=== PATIENT | male | born 1930 | race Hispanic/Latino ===

== ENCOUNTER 2018-07-22 23:34 | Inpatient (IN) | payer MEDICARE ==
[2018-07-22] MEDS: Albuterol-Ipratrop 3 mg / 0.5 (3 ml) UD IH SCH (23:55)
--- NOTE | 2018-07-23 00:05 | ED PDOC ---
Arrival/HPI - General Historian: Patient - History of Present Illness Narrative History of Present Illness (Text): 07/22/18 23:45 87 y/o male, pmh including copd/chf/pneumonia/pulmonary htn/Severe TR wit mild to moderate MR/a.fibb, nkda, c/o cough/shortness of breath on exertion started about 12 hours ago, hypoxic room air @ 89 percent when off oxygen. Pt. has been coughing on and off for the entire day, coughing with wheezing, history of a.fibb but not on any anticoagulant, coughing with shortness of breath, exacerbated by walking, on night sweat, no dizziness, no change in vision, no other medical or psychological complaints. PCP: Dr. Roberts Neurology Manager: Dr. Banda Past Medical History - Provider Review Nursing Documentation Reviewed: Yes - Infectious Disease Hx of Infectious Diseases: None - Tetanus Immunization Tetanus Immunization: Unknown - Cardiac Hx Cardiac Arrhythmia: Yes (afib) Hx Congestive Heart Failure: Yes Hx Peripheral Edema: Yes (bilateral lower extremity discoloration) - Pulmonary Hx Chronic Obstructive Pulmonary Disease (COPD): Yes Hx Pneumonia: Yes (Thoracentesis 07/2014) - HEENT Hx Cataracts: Yes (rt.eye with surgery) Hx Deafness: Yes (right ear) Hx Glaucoma: Yes (left eye) Other/Comment: [place] - Endocrine/Metabolic Hx Hypothyroidism: Yes - Integumentary Hx Dermatological Disorder: No - Musculoskeletal/Rheumatological Hx Falls: No - Gastrointestinal Hx Gastrointestinal Disorders: Yes (occasional constipation) - Genitourinary/Gynecological Hx Prostate Problems: Yes Other/Comment: BPH - Psychiatric Hx Substance Use: No - Past Surgical History Past Surgical History: No Previous - Surgical History Hx Inguinal Hernia Repair: Yes Other/Comment: inguinal hernia sx 30 yrs ago. Cataracts Repair Sx. Glaucoma S/P - Anesthesia Hx Anesthesia: Yes Hx Anesthesia Reactions: No Hx Malignant Hyperthermia: No - Suicidal Assessment Feels Threatened In Home Enviroment: No Family/Social History - Physician Review Nursing Documentation Reviewed: Yes Family/Social History: Unknown Family HX Smoking Status: Former Smoker Hx Alcohol Use: No Hx Substance Use: No Hx Substance Use Treatment: No Allergies/Home Meds Allergies/Adverse Reactions: Allergies No Known Allergies Allergy (Verified 12/10/12 11:28) Home Medications: Home Meds Medication Instructions Recorded Confirmed Budesonide/Formoterol Fumarate 1 aer IH PRN PRN 08/01/13 07/23/18 [Symbicort] Levothyroxine Sodium [Levothroid] 0.05 mg PO DAILY 08/01/13 07/23/18 Review of Systems - Review of Systems Constitutional: absent: Fatigue, Fevers Eyes: absent: Vision Changes ENT: absent: Hearing Changes Respiratory: SOB, Cough, Sputum, Wheezing Cardiovascular: absent: Chest Pain Gastrointestinal: absent: Abdominal Pain, Diarrhea, Nausea, Vomiting Skin: absent: Rash, Pruritis Neurological: absent: Headache, Dizziness Psychiatric: absent: Anxiety, Depression, Suicidal Ideation Physical Exam Vital Signs Reviewed: Yes Temperature: Afebrile Blood Pressure: Normal Pulse: Tachycardic Respiratory Rate: Normal Appearance: Positive for: Well-Appearing, Non-Toxic, Comfortable Pain Distress: None Mental Status: Positive for: Alert and Oriented X 3 - Systems Exam Head: Present: Atraumatic, Normocephalic Pupils: Present: PERRL Extroacular Muscles: Present: EOMI Conjunctiva: Present: Normal Mouth: Present: Moist Mucous Membranes Neck: Present: Normal Range of Motion Respiratory/Chest: Present: Decreased Breath Sounds, Rhonchi. No: Respiratory Distress, Accessory Muscle Use, Wheezes, Rales, Retracting, Tachypneic, Tender to Palpation Cardiovascular: Present: Regular Rate and Rhythm, Normal S1, S2. 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 No: Occult Blood, Rectal Tenderness, Gross Blood, Melena, Fissures, Nodule/Mass/Lesions Back: Present: Normal Inspection Upper Extremity: Present: Normal Inspection. No: Cyanosis, Edema Lower Extremity: Present: Normal Inspection. No: Edema Neurological: Present: GCS=15, CN II-XII Intact, Speech Normal Skin: Present: Warm, Dry, Normal Color. No: Rashes Psychiatric: Present: Alert, Oriented x 3, Normal Insight, Normal Concentration Medical Decision Making ED Course and Treatment: 07/23/18 00:15 -labs -ekg -cxr -school lunch monitor -IV solumedrol/duoneb/aspirin -observe and reassess 07/23/18 02:18 -EKG: A.fibb @ 100 BPM, non specific ST or T wave changes, compared with previous ekg -Chest xray The cardiac silhouette is enlarged. There is evidence for pulmonary venous congestion compatible with CHF. Note is made of confluent RML and LLL opacities compatible with pneumonia. -Labs are non-significant -Mg with normal limit -Trop is negative on this set. -BNP 4350, Lasix 40IVP ordered. -Lactic acid 1.3 -Dimer mildly elevated, 366, CTA ordered. -CTA There is evidence for pulmonary venous congestion compatible with CHF. Small right pleural effusion noted. Note is made of confluent RML, RLL and LLL opacities compatible with multifocal pneumonia. Mild non-specific bilateral hilar adenopathy possibly reactive. Multiple calcified gallstones are noted. No evidence of PE. -Based on [id number], pt. is score of 3 and he should be antiocoagulated. -Heart score is moderate. -Pt. will need admission for bilateral pneumonia with rt. pleural effusion/CHF -I spoke to the family and the patient about the result, recommend admission which they agreed. -I spoke to the night admitting team, Dr. Riddle and the resident, discussed about the case/labs/radiology results and they will come to evaluate and admit the patient. 07/23/18 02:34 -Repeat EKG: A.fibb @ 97 BPM, non specific ST or T wave changes compared with previous ekgs. Pt. is not anticoagulated, spoke to the night hospitalist and recommend single lovenox and let the patient's furniture finisher apprentice Dr. Banda to follow up as the patient is not anticoagulated. -Guaiac negative -Febrile 100.4F, tylenol ordered. - Critical Care Critical Care Minutes: 45 minutes Critical Care Time: Unstable Narrative Critical Care (Text): 07/23/18 02:47 hypoxic/copd/chf/bilateral pneumonia with pleural effusion, duonebx3, solumedrol 125mg IV, oxygen, IV antibiotics/cultures, admission and telemetry. - RAD Interpretation Radiology Orders: CTA Chest: EXAM: CTA Chest with Intravenous Contrast for Pulmonary Embolism CLINICAL HISTORY: Sob/tachycardia, r/o pe TECHNIQUE: Axial CTA images of the chest with intravenous contrast using a pulmonary embolism protocol. Reconstructed images were created and reviewed. 367.99 mGy-cm CONTRAST: With; VISI 320 100 ml was administered without incident. COMPARISON: DX\SD\LA - CHEST PORTABLE - 07/23/2018 12:15 AM EST FINDINGS: PULMONARY ARTERIES No evidence of central or segmental pulmonary embolism is seen. AORTA There is no evidence for aneurysm or dissection of the thoracic aorta. LUNGS There is evidence for pulmonary venous congestion compatible with CHF. Note is made of confluent RML, RLL and LLL opacities compatible with multifocal pneumonia. PLEURAL SPACES Small right pleural effusion noted. HEART Normal heart size. No significant pericardial effusion. LYMPH NODES Mild non-specific bilateral hilar adenopathy possibly reactive. BONES No focal osseous abnormality or acute fracture. UPPER ABDOMEN Multiple calcified gallstones are noted. IMPRESSION: 1. There is evidence for pulmonary venous congestion compatible with CHF. 2. Small right pleural effusion noted. 3. Note is made of confluent RML, RLL and LLL opacities compatible with multifocal pneumonia. 4. Mild non-specific bilateral hilar adenopathy possibly reactive. 5. Multiple calcified gallstones are noted. 6. No evidence of PE. Electronically signed on Jul 23, 2018 2:03:33 AM EST by: Luther Connors M.D., MBA Certified By ABR & CBCCT Fellowship Trained MRI and CT Specialist - Chest xray: FINDINGS: LUNGS: There is evidence for pulmonary venous congestion compatible with CHF. Note is made of confluent RML and LLL opacities compatible with pneumonia. PLEURAL SPACES: No pleural effusion or pneumothorax. MEDIASTINUM: The cardiac silhouette is enlarged. BONES: No acute osseous abnormality. IMPRESSION: 1. The cardiac silhouette is enlarged. 2. There is evidence for pulmonary venous congestion compatible with CHF. 3. Note is made of confluent RML and LLL opacities compatible with pneumonia. Electronically signed on Jul 23, 2018 1:57:52 AM EST by: Luther Connors M.D., MBA Certified By ABR & CBCCT Fellowship Trained MRI and CT Specialist It Investment/Portfolio Manager: Radiologist - EKG Interpretation EKG Interpretation (Text): 07/23/18 00:15 -EKG: A.fibb @ 100 BPM, non specific ST or T wave changes, compared with previous ekg Interpreted by ED Physician: Yes Type: 12 lead EKG - PA / CNC SET UP OPERATOR / Resident Statement MD/DO has reviewed & agrees with the documentation as recorded. Disposition/Present on Arrival - Present on Arrival Any Indicators Present on Arrival: No History of DVT/PE: No History of Uncontrolled Diabetes: No Urinary Catheter: No History of Decub. Ulcer: No History Surgical Site Infection Following: None - Disposition Have Diagnosis and Disposition been Completed?: Yes Diagnosis: SOB (shortness of breath), Pneumonia, COPD (chronic obstructive pulmonary disease), Congestive heart failure, Pleural effusion, Hypoxic, Atrial fibrillation, Fever Disposition: HOSPITALIZED Disposition Time: 02:16 Patient Plan: Admission, Telemetry Patient Problems: Current Active Problems Problem Status Onset Congestive heart failure Acute Pneumonia Acute SOB (shortness of breath) Acute COPD (chronic obstructive pulmonary disease) Acute Pleural effusion Acute Hypoxic Acute Atrial fibrillation Acute Fever Acute Condition: GUARDED
[2018-07-23] MEDS: Albuterol-Ipratrop 3 mg / 0.5 (3 ml) UD IH SCH ×5 (00:10→21:00)
[2018-07-23 00:25] LABS: BASO # 0.01 K/mm3 (0.0-2.0); BASO % 0.1 % (0.0-3.0); EOS % 0.2 % (1.5-5.0); GRAN # 7.9 (1.4-6.5); GRAN % 73.8 % (50.0-68.0); HEMOGLOBIN 11.2 g/dL (14.0-18.0); LYMPH # 1.5 (1.2-3.4); LYMPH % 13.7 % (22.0-35.0); MEAN CELL VOLUME 89.8 fl (80.0-105.0); MEAN CORPUSCULAR HEMOGLOBIN 29.3 pg (25.0-35.0); MEAN CORPUSCULAR HGB CONC 32.7 g/dl (31.0-37.0); MEAN PLATELET VOLUME 10.1 fl (7.0-11.0); MONO # 1.3 (0.1-0.6); MONO % 12.2 % (1.0-6.0); RBC 3.82 10^6/uL (3.5-6.1); WHITE BLOOD COUNT 10.7 10^3/uL (4.5-11.0)
[2018-07-23 00:29] LABS: VENOUS BLOOD GAS PO2 28 mm/Hg (30-55); VENOUS BLOOD PH 7.32 (7.32-7.43)
[2018-07-23 00:30] LABS: INR 1.21; PARTIAL THROMBOPLASTIN TIME 33.8 Seconds (25.1-36.5); PROTHROMBIN TIME 13.9 SECONDS (9.4-12.5)
[2018-07-23 00:31] LABS: ALB/GLOB RATIO 1.1 (1.1-1.8); ALBUMIN 4.6 g/dL (3.0-4.8); ALT/SGPT 25 U/L (7-56); AST/SGOT 30 U/L (17-59); BLOOD UREA NITROGEN 19 mg/dL (7-21); CALCIUM 9.1 mg/dL (8.4-10.5); GFR NON-AFRICAN AMERICAN > 60
[2018-07-23] MEDS ORDERED: Iodixanol 320 MG/ML 100 ML BOTTLE IV ONE (00:39)
[2018-07-23 00:43] LABS: B-TYPE NATRIURETIC PEPTIDE 4350 pg/mL (0-450); TROPONIN I < 0.01 ng/mL
[2018-07-23] MEDS ORDERED: cefTRIAXone 1 gm 1 GM/100 ML BAG IVPB STA (02:04)
[2018-07-23] MEDS ORDERED: Azithromycin 500MG/NS 250ml 500 MG/250 ML BAG IVPB STA (02:04)
[2018-07-23 02:40] VITALS: BMI 20.9
[2018-07-23] MEDS ORDERED: Enoxaparin 60 mg Syringe SC STA (02:46)
--- NOTE | 2018-07-23 03:01 | CP.PCM.HP ---
<Andrea Mckinney - Last Filed: 07/23/18 05:59> History of Present Illness - History of Present Illness History of Present Illness: Andrea Mckinney, PGY1 Hospital H&P This is an 87 year old male with PMH of CHF with preserved EF in 2013, COPD, hypothyroidism, pneumonia, pulmonary hypertension, severe tricuspid regurgitation and afib not on AC presenting to the hospital for one day history of SOB. Family who is present at bedside provide history and state patient was in his usual state of health but began to have SOB on exertion earlier in the day associated with non productive cough, sneezing, wheezing and one episode of non bloody vomiting. Family states current symptoms are similar to previous episodes of pneumonia. Family says patient is compliant with medications. Denies CP, fevers, chills, back pain, abdominal pain, urinary complaints, diarrhea, constipation, numbness, tingling, swelling, recent travel, sickness, sick contacts, trauma and lifestyle changes including diet and weight. 12 point ROS noted here, otherwise unremarkable. PMD: Dr. Lee Car Shagger: Dr. Banda PMH: CHF with preserved EF in 2013, COPD, hypothyroidism, pneumonia, pulmonary hypertension, severe tricuspid regurgitation and afib not on AC Meds: reviewed and confirmed with [facility]: denies drinking, smoking and drugs Sx: denies surgeries FH: STALIN All: NKDA Pharmacy: [facility] on [address] in [place] Present on Admission - Present on Admission Any Indicators Present on Admission: No Past Patient History - Infectious Disease Hx of Infectious Diseases: None - Tetanus Immunizations Tetanus Immunization: Unknown - Past Social History Smoking Status: Former Smoker - CARDIAC Hx Cardia Arrhythmia: Yes (afib) Hx Congestive Heart Failure: Yes Hx Peripheral Edema: Yes (bilateral lower extremity discoloration) - PULMONARY Hx Chronic Obstructive Pulmonary Disease (COPD): Yes Hx Pneumonia: Yes (Thoracentesis 07/2014) - HEENT Hx Cataracts: Yes (rt.eye with surgery) Hx Deafness: Yes (right ear) Hx Glaucoma: Yes (left eye) Other/Comment: [place] - ENDOCRINE/METABOLIC Hx Hypothyroidism: Yes - INTEGUMENTARY Hx Dermatological Problems: No - MUSCULOSKELETAL/RHEUMATOLOGICAL Hx Falls: No - GASTROINTESTINAL Hx Gastrointestinal Disorders: Yes (occasional constipation) - GENITOURINARY/GYNECOLOGICAL Hx Prostate Problems: Yes Other/Comment: BPH - PSYCHIATRIC Hx Substance Use: No - SURGICAL HISTORY Other/Comment: inguinal hernia sx 30 yrs ago. Cataracts Repair Sx. Glaucoma S/P - ANESTHESIA Hx Anesthesia: Yes Hx Anesthesia Reactions: No Hx Malignant Hyperthermia: No Meds Allergies/Adverse Reactions: Allergies Allergy/AdvReac Type Severity Reaction Status Date / Time No Known Allergies Allergy Verified 12/10/12 11:28 Physical Exam - Constitutional Appears: Chronically Ill - Head Exam Head Exam: ATRAUMATIC, NORMAL INSPECTION - Eye Exam Eye Exam: EOMI Pupil Exam: PERRL - ENT Exam ENT Exam: Mucous Membranes Moist - Respiratory Exam Respiratory Exam: Wheezes. absent: Accessory Muscle Use, Respiratory Distress Additional comments: B/L wheezing appreciated all lung [place], worse with exertion - Cardiovascular Exam Cardiovascular Exam: Irregular Rhythm, +S1, +S2. absent: Tachycardia - GI/Abdominal Exam GI & Abdominal Exam: Normal Bowel Sounds, Soft. absent: Distended, Firm, Guarding, Tenderness - Extremities Exam Extremities exam: Positive for: calf tenderness, normal inspection, pedal pulses present. Negative for: joint swelling, pedal edema - Neurological Exam Neurological exam: Alert Additional comments: lethargic - Skin Skin Exam: Normal Color, Warm Results - Vital Signs Recent Vital Signs: Last Vital Signs Temp 100.4 F H 07/23/18 02:43 Pulse 93 H 07/23/18 02:43 Resp 19 07/23/18 02:43 BP 112/76 07/23/18 02:43 Pulse Ox 100 07/23/18 02:43 - Labs Result Diagrams: 07/22/18 23:50 07/22/18 23:50 Labs: Laboratory Results - last 24 hr 07/22/18 07/22/18 07/22/18 23:50 23:50 23:50 WBC 10.7 RBC 3.82 Hgb 11.2 L Hct 34.3 L MCV 89.8 MCH 29.3 MCHC 32.7 RDW 15.0 H Plt Count 170 MPV 10.1 Gran % 73.8 H Lymph % (Auto) 13.7 L [place] % (Auto) 12.2 H Eos % (Auto) 0.2 L Baso % (Auto) 0.1 Gran # 7.90 H Lymph # (Auto) 1.5 [place] # (Auto) 1.3 H Eos # (Auto) 0.0 Baso # (Auto) 0.01 PT INR APTT D-Dimer, Quantitative pO2 28 L VBG pH 7.32 VBG pCO2 57.0 VBG HCO3 29.4 H VBG Total CO2 31.1 H VBG O2 Sat (Calc) 50.3 VBG Base Excess 2.0 VBG Potassium 4.3 Sodium 136.0 138 Chloride 99.0 98 Glucose 99 Lactate 1.3 FiO2 21.0 Potassium 4.3 Carbon Dioxide 29 Anion Gap 16 BUN 19 Creatinine 1.1 Est GFR ( Amer) > 60 Est GFR (Non-Af Amer) > 60 Random Glucose 97 Calcium 9.1 Magnesium 1.8 Total Bilirubin 1.4 H AST 30 ALT 25 Alkaline Phosphatase 88 Troponin I < 0.01 NT-Pro-B Natriuret Pep 4350 H Total Protein 8.7 H Albumin 4.6 Globulin 4.1 Albumin/Globulin Ratio 1.1 Venous Blood Potassium 4.3 07/22/18 23:50 WBC RBC Hgb Hct MCV MCH MCHC RDW Plt Count MPV Gran % Lymph % (Auto) [place] % (Auto) Eos % (Auto) Baso % (Auto) Gran # Lymph # (Auto) [place] # (Auto) Eos # (Auto) Baso # (Auto) PT 13.9 H INR 1.21 APTT 33.8 D-Dimer, Quantitative 366 H pO2 VBG pH VBG pCO2 VBG HCO3 VBG Total CO2 VBG O2 Sat (Calc) VBG Base Excess VBG Potassium Sodium Chloride Glucose Lactate FiO2 Potassium Carbon Dioxide Anion Gap BUN Creatinine Est GFR ( Amer) Est GFR (Non-Af Amer) Random Glucose Calcium Magnesium Total Bilirubin AST ALT Alkaline Phosphatase Troponin I NT-Pro-B Natriuret Pep Total Protein Albumin Globulin Albumin/Globulin Ratio Venous Blood Potassium Assessment & Plan - Assessment and Plan (Free Text) Assessment: This is an 87 year old male with PMH of CHF with preserved EF in 2013, COPD, hypothyroidism, pneumonia, pulmonary hypertension, severe tricuspid regurgitation and afib not on AC presenting to the hospital for one day history of SOB. Plan: Pneumonia -CTA shows pulmonary venous congestion compatible with CHF, RML, RLL and LLL opacities compatible with multifocal pneumonia, mild non-specific bilateral hilar adenopathy possibly reactive, nevidence of PE. F/u official read -procalc pending -rocephin, azithromycin day 1 -ESR/CRP/SWATI pending for hilar adenopathy -lactate WNL -blood culture pending -legionella, strep pneum, influenza pending -PT/OT -fall precautions -aspiration precautions -chest PT Hx of Diastolic CHF -per previous records, likely etiology from cor pulmonale with severe pulmonary hypertension -CXR shows cardiac silhouette is enlarged, pulmonary venous congestion compatible with CHF -BNP elevated -lasix 20 IV BID -previous echo in 2013 showed normal LVEF, RVSP 92, moderate MR, severe TR -echo pending -trending trops -government teacher on consult, Dr. Banda Hx of chronic afib -initial EKG showed afib at 100bpm, no ST changes -Chadsvasc score is 3 -will need AC, not currently on home AC -ASA 81mg for now -cardiology on consult, Dr. Banda Hx of COPD -VBG does not show CO2 retention, unlikely COPD exacerbation -ABG pending -continue supplemental O2 as needed -duonebs prn and ella Hx of Hypothyrodism -continue home levothyroxine -TSH pending PPX/Diet -lovenox and pepcid -HHD Patient seen and case discussed with attending, Dr. Riddle <Meliton Riddle - Last Filed: 07/23/18 06:58> Results - Vital Signs Recent Vital Signs: Last Vital Signs Temp 98 F 07/23/18 06:00 Pulse 101 H 07/23/18 06:00 Resp 22 07/23/18 06:00 BP 123/87 07/23/18 06:00 Pulse Ox 99 07/23/18 06:00 - Labs Result Diagrams: 07/22/18 23:50 07/22/18 23:50 Labs: Laboratory Results - last 24 hr 07/22/18 07/22/18 07/22/18 23:50 23:50 23:50 WBC 10.7 RBC 3.82 Hgb 11.2 L Hct 34.3 L MCV 89.8 MCH 29.3 MCHC 32.7 RDW 15.0 H Plt Count 170 MPV 10.1 Gran % 73.8 H Lymph % (Auto) 13.7 L [place] % (Auto) 12.2 H Eos % (Auto) 0.2 L Baso % (Auto) 0.1 Gran # 7.90 H Lymph # (Auto) 1.5 [place] # (Auto) 1.3 H Eos # (Auto) 0.0 Baso # (Auto) 0.01 ESR PT INR APTT D-Dimer, Quantitative pCO2 pO2 28 L HCO3 ABG pH ABG Total CO2 ABG O2 Saturation ABG O2 Content ABG Base Excess ABG Hemoglobin ABG Carboxyhemoglobin POC ABG HHb (Measured) ABG Methemoglobin ABG O2 Capacity VBG pH 7.32 VBG pCO2 57.0 VBG HCO3 29.4 H VBG Total CO2 31.1 H VBG O2 Sat (Calc) 50.3 VBG Base Excess 2.0 VBG Potassium 4.3 Hgb O2 Saturation Sodium 136.0 138 Chloride 99.0 98 Glucose 99 Lactate 1.3 FiO2 21.0 Potassium 4.3 Carbon Dioxide 29 Anion Gap 16 BUN 19 Creatinine 1.1 Est GFR ( Amer) > 60 Est GFR (Non-Af Amer) > 60 Random Glucose 97 Calcium 9.1 Magnesium 1.8 Total Bilirubin 1.4 H AST 30 ALT 25 Alkaline Phosphatase 88 Troponin I < 0.01 NT-Pro-B Natriuret Pep 4350 H Total Protein 8.7 H Albumin 4.6 Globulin 4.1 Albumin/Globulin Ratio 1.1 Venous Blood Potassium 4.3 07/22/18 07/22/18 07/23/18 23:50 23:50 04:18 WBC RBC Hgb Hct MCV MCH MCHC RDW Plt Count MPV Gran % Lymph % (Auto) [place] % (Auto) Eos % (Auto) Baso % (Auto) Gran # Lymph # (Auto) [place] # (Auto) Eos # (Auto) Baso # (Auto) ESR 80 H PT 13.9 H INR 1.21 APTT 33.8 D-Dimer, Quantitative 366 H pCO2 37 pO2 66.0 L HCO3 24.0 ABG pH 7.42 ABG Total CO2 25.1 ABG O2 Saturation 95.9 ABG O2 Content 13.5 L ABG Base Excess -0.3 ABG Hemoglobin 10.4 L ABG Carboxyhemoglobin 2.9 H POC ABG HHb (Measured) 3.9 ABG Methemoglobin 1.1 ABG O2 Capacity 14.1 L VBG pH VBG pCO2 VBG HCO3 VBG Total CO2 VBG O2 Sat (Calc) VBG Base Excess VBG Potassium Hgb O2 Saturation 92.1 L Sodium Chloride Glucose Lactate FiO2 28.0 Potassium Carbon Dioxide Anion Gap BUN Creatinine Est GFR ( Amer) Est GFR (Non-Af Amer) Random Glucose Calcium Magnesium Total Bilirubin AST ALT Alkaline Phosphatase Troponin I NT-Pro-B Natriuret Pep Total Protein Albumin Globulin Albumin/Globulin Ratio Venous Blood Potassium Attending/Attestation - Attestation I have personally seen and examined this patient.: Yes I have fully participated in the care of the patient.: Yes I have reviewed all pertinent clinical information: Yes
[2018-07-23] MEDS ORDERED: Albuterol-Ipratrop 3 mg / 0.5 (3 ml) UD IH PRN (03:20)
[2018-07-23] MEDS ORDERED: guaiFENesin DM 100 mg-10 mg/5 ml UD PO PRN (03:30)
[2018-07-23 04:28] LABS: ARTERIAL BLOOD GAS HEMOGLOBIN 10.4 g/dL (11.7-17.4); ARTERIAL BLOOD GAS O2 CAPACITY 14.1 mL/dl (16-24); ARTERIAL BLOOD GAS O2 CONTENT 13.5 ML/dl (15-23); ARTERIAL BLOOD GAS O2 SAT 95.9 % (95-98); ARTERIAL BLOOD GAS PCO2 37 mm/Hg (35-45); ARTERIAL BLOOD GAS PH 7.42 (7.35-7.45); ARTERIAL BLOOD GAS TCO2 25.1 mmol.L (22-28)
[2018-07-23] MEDS: Levothyroxine 50 MCG TAB PO SCH (06:41)
[2018-07-23 07:01] LABS: BASO # 0.01 K/mm3 (0.0-2.0); BASO % 0.1 % (0.0-3.0); GRAN # 11.76 (1.4-6.5); GRAN % 92.7 % (50.0-68.0); HEMOGLOBIN 10.3 g/dL (14.0-18.0); LYMPH # 0.5 (1.2-3.4); LYMPH % 4.3 % (22.0-35.0); MEAN CELL VOLUME 88.4 fl (80.0-105.0); MEAN CORPUSCULAR HEMOGLOBIN 29.1 pg (25.0-35.0); MEAN CORPUSCULAR HGB CONC 32.9 g/dl (31.0-37.0); MEAN PLATELET VOLUME 10.2 fl (7.0-11.0); MONO # 0.4 (0.1-0.6); MONO % 2.9 % (1.0-6.0); PLATELET COUNT 157 10^3/uL (120.0-450.0); RBC 3.54 10^6/uL (3.5-6.1); RED CELL DISTRIBUTION WIDTH 14.8 % (11.5-14.5); WHITE BLOOD COUNT 12.7 10^3/uL (4.5-11.0)
[2018-07-23 07:04] LABS: TROPONIN I 0.01 ng/mL
[2018-07-23 07:07] LABS: ALB/GLOB RATIO 1.1 (1.1-1.8); ALBUMIN 3.9 g/dL (3.0-4.8); ALT/SGPT 19 U/L (7-56); AST/SGOT 25 U/L (17-59); BLOOD UREA NITROGEN 20 mg/dL (7-21); CALCIUM 8.6 mg/dL (8.4-10.5); GFR NON-AFRICAN AMERICAN > 60
[2018-07-23 08:20] LABS: BAND 3 % (0-2); LYMPHOCYTE 5 % (22.0-35.0); METAMYELOCYTE 1 %; NEUTROPHIL 91 % (50.0-70.0)
[2018-07-23 08:21] LABS: PLATELET ESTIMATE NORMAL (NORMAL)
--- NOTE | 2018-07-23 09:00 | CT ---
Date of service: 07/23/2018 PROCEDURE: CT Chest with contrast (Pulmonary Angiogram) HISTORY: sob/tachycardia, r/o pe COMPARISON: None available. TECHNIQUE: Axial computed tomography images were obtained of the chest in the pulmonary arterial phase of enhancement. Coronal and sagittal reformatted images were created and reviewed. Intravenous contrast dose: 100 mL of Visipaque 320 intravenously Radiation dose: Total exam DLP = 368.0 mGy-cm. This CT exam was performed using one or more of the following dose reduction techniques: Automated exposure control, adjustment of the mA and/or kV according to patient size, and/or use of iterative reconstruction technique. FINDINGS: PULMONARY ARTERIES: No evidence of filling defect in the visualized pulmonary arteries to suggest acute pulmonary embolus. AORTA: No acute findings. No thoracic aortic aneurysm. Foci of atherosclerotic calcification noted in the thoracic aorta. Mild diffuse mural thickening is also noted. LUNGS: There are foci of airspace consolidation noted in the right middle lobe right lower lobe and left lower lobe may represent multifocal pneumonia. The differential consideration includes aspiration. Patchy ground-glass opacities seen in the lungs likely due to pulmonary venous congestion. PLEURAL SPACES: There is small to moderate size right pleural effusion. No evidence of pneumothorax. HEART: The heart is enlarged. The main pulmonary artery is mildly enlarged. Diffuse atherosclerotic calcification in the coronary arteries are noted. LYMPH NODES: Slightly prominent mediastinal lymph nodes are noted. There are also bilateral mildly enlarged hilar lymph nodes. BONES, CHEST WALL: Unremarkable. No fracture or destructive lesion OTHER FINDINGS: The scan through the upper abdomen demonstrates large gallstones. There are foci of calcifications seen in the spleen likely represent calcified granuloma. IMPRESSION: No evidence of acute pulmonary embolus. Small to moderate size right pleural effusion. Cardiomegaly. Moderate pulmonary vascular congestion and scattered patchy ground-glass opacities. Foci of airspace consolidation at the right middle and bilateral lower lobes may represent pneumonia or aspiration versus less likely severe congestion and pulmonary edema. Mildly enlarged bilateral nonspecific hilar lymph nodes. Additional findings as discussed above. Preliminary report was submitted by [facility] Radiology contains concordant findings
[2018-07-23] MEDS: cefTRIAXone 1 gm 1 GM/100 ML BAG IVPB SCH (09:14)
--- NOTE | 2018-07-23 09:26 | CON ---
DATE: 07/23/2018 REASON FOR CONSULTATION: Shortness of breath, pneumonia, cor pulmonale. HISTORY OF PRESENT ILLNESS: This is an 87-year-old man known to our practice, admitted with several days of increasing shortness of breath, dyspnea on exertion, not feeling well. In the ER, he was found to have an abnormal chest x-ray with a right-sided infiltrate. A CT scan, which is not officially interpreted, apparently showed infiltrates also as well as vascular congestion. He was admitted to telemetry. This morning he feels weak and notes dyspnea on exertion with minimal activities. There is no chest pain, orthopnea, PND, syncope, presyncope, lightheadedness, dizziness or vertigo. No palpitations. No edema. No fever, chills, rigor, sweats, hemoptysis, abdominal pain, nausea, vomiting, diarrhea, constipation, melena. He did vomit once yesterday after being given soup by his . PAST MEDICAL HISTORY: Complex. He has cor pulmonale, severe COPD. An echocardiogram in 2013 revealed severe pulmonary hypertension, severe tricuspid regurgitation, moderate mitral regurgitation, preserved LV function. He has a history of chronic AFib. He is not on anticoagulation because of gross hematuria in the past. There is a history of hypertension, BPH, hypothyroidism and anemia. There is no history of myocardial infarction, rheumatic fever, stroke, TIA, diabetes or gout. MEDICATIONS AT THE TIME OF ADMISSION: Include Lasix, levothyroxine and Symbicort. ALLERGIES: THERE ARE NO MEDICATION ALLERGIES REPORTED. SOCIAL HISTORY: He lives at home with his . He is ambulatory but limited. He does not smoke cigarettes. He does not drink alcohol. FAMILY HISTORY: Noncontributory. REVIEW OF SYSTEMS: Ten-point review of systems is otherwise unremarkable except as noted above. PHYSICAL EXAMINATION: GENERAL: He is a well-developed elderly male lying in bed on telemetry, in no acute distress. VITAL SIGNS: He is in AFib at 90-100 beats per minute. Temperature was 100.4 during the night, blood pressure 123/87, respirations 19-22, O2 sat currently 99% on nasal cannula. HEENT: Exam reveals elevated neck veins. No carotid bruit. No thyroid enlargement. Mucous membranes moist. Conjunctivae pink. NECK: Supple. LUNGS: Lung morataya reveal scattered rhonchi, more on the right. HEART: Revealed an irregular rhythm. Normal first and second heart sounds. There is a systolic murmur along the left sternal border. PMI is not palpable. ABDOMEN: Soft. Bowel sounds present. No mass, organomegaly, tenderness, rebound, guarding. No CVA tenderness. No palpable abdominal aortic aneurysm. EXTREMITIES: Exam revealed no cyanosis, clubbing or edema. NEUROLOGICAL: He was awake and alert. PSYCHIATRIC: Normal as to mood and affect. SKIN: Warm and dry. No rash or cellulitis. LABORATORY AND IMAGING: Chest x-ray is a portable study, is not interpreted yet. There appear to be right lower lobe infiltrates, cardiomegaly. CT scan of the chest was done, it is not interpreted yet. Apparently, it showed multiple infiltrates in the right lung as well as vascular congestion. White count 12,700, hemoglobin 10.3, hematocrit 31.3, platelet count normal. PT, INR, PTT unremarkable. D-dimer elevated at 366. Blood gases are noted. Electrolytes, BUN, creatinine, blood sugar unremarkable. Magnesium 1.8, bilirubin 1.5. Other LFTs unremarkable. Two troponins negative. BNP 4350. TSH normal. IMPRESSION: Keith Wright is an 87-year-old man with severe chronic obstructive pulmonary disease, cor pulmonale, pulmonary hypertension, tricuspid regurgitation, who presents with right lung pneumonia, community acquired. At this time, I will review his records. I will order an echocardiogram. He has been cultured. He is getting antibiotics and pulmonary treatments. He feels better this morning. He will have a Pulmonary consultation. He is getting Lovenox, aspirin, Lasix, Pepcid. We will monitor I's and O's. I will obtain an EKG. We will check stool for occult blood. I spoke with his at the bedside. Overall, a conservative course of cardiac care is anticipated. Mehrdad Banda MD [facility]
--- NOTE | 2018-07-23 09:35 | CP.PCM.CON ---
<Kumar Wolf - Last Filed: 07/23/18 11:51> History of Present Illness - History of Present Illness History of Present Illness: Infectious disease consult note for Dr. Vidales/Dr. Peters service - Michael Wolf PGY3 HPI: Patient is a 87yo male with past medical history of CHF with preserved E F(2013), COPD, hypothyroidism, pneumonia, pulmonary hypertension, severe tricuspid regurgitation and atrial fibrillation (not on AC) that presented [place] [facility]/o shortness of breath. Patient was reportedly in his usual state of health but thereby developed shortness of breath worsened by exertion associated with nonproductive cough, wheezing and sneezing. He reportedly has a history of similar symptoms that were attributed to pneumonia. Otherwise, patient denied fever, chills, abdominal pain, nausea, vomiting, dysuria, frequency, urgency, sick contacts, recent travel. Infectious disease consulted for evaluation of infectious etiology. 12point ROS as per above otherwise negative PMH: as stated above PSH: denies Allergies: NKDA Social Hx: Denies tobacco, alcohol and illicit drug use Family Hx: Noncontributory PMD: Dr. Draper [employer] Tender: Dr. Banda Past Patient History - Infectious Disease Hx of Infectious Diseases: None - Tetanus Immunizations Tetanus Immunization: Unknown - Past Social History Smoking Status: Former Smoker - CARDIAC Hx Cardia Arrhythmia: Yes (afib) Hx Congestive Heart Failure: Yes Hx Peripheral Edema: Yes (bilateral lower extremity discoloration) - PULMONARY Hx Chronic Obstructive Pulmonary Disease (COPD): Yes Hx Pneumonia: Yes (Thoracentesis 07/2014) - HEENT Hx Cataracts: Yes (rt.eye with surgery) Hx Deafness: Yes (right ear) Hx Glaucoma: Yes (left eye) Other/Comment: [place] - ENDOCRINE/METABOLIC Hx Hypothyroidism: Yes - INTEGUMENTARY Hx Dermatological Problems: No - MUSCULOSKELETAL/RHEUMATOLOGICAL Hx Falls: No - GASTROINTESTINAL Hx Gastrointestinal Disorders: Yes (occasional constipation) - GENITOURINARY/GYNECOLOGICAL Hx Prostate Problems: Yes Other/Comment: BPH - PSYCHIATRIC Hx Substance Use: No - SURGICAL HISTORY Other/Comment: inguinal hernia sx 30 yrs ago. Cataracts Repair Sx. Glaucoma S/P - ANESTHESIA Hx Anesthesia: Yes Hx Anesthesia Reactions: No Hx Malignant Hyperthermia: No Meds Allergies/Adverse Reactions: Allergies Allergy/AdvReac Type Severity Reaction Status Date / Time No Known Allergies Allergy Verified 12/10/12 11:28 - Medications Medications: Current Medications Acetaminophen (Tylenol 325mg Tab) 650 mg PO Q6H PRN PRN Reason: Fever >100.4 F Albuterol/Ipratropium (Duoneb 3 Mg/0.5 Mg (3 Ml) Ud) 3 ml IH [id number] [facility] Last Admin: 07/23/18 08:20 Dose: 3 ml Albuterol/Ipratropium (Duoneb 3 Mg/0.5 Mg (3 Ml) Ud) 3 ml IH Q2H PRN PRN Reason: Shortness of Breath Aspirin (Aspirin Chewable) 81 mg PO DAILY [facility] Last Admin: 07/23/18 09:13 Dose: 81 mg Enoxaparin Sodium (Lovenox) 40 mg SC DAILY [facility]; Protocol Famotidine (Pepcid) 20 mg IVP DAILY [facility] Last Admin: 07/23/18 09:14 Dose: 20 mg Furosemide (Lasix) 20 mg IVP Q12 [facility] Last Admin: 07/23/18 09:13 Dose: 20 mg Guaifenesin/Dextromethorphan (Robitussin Dm) 5 ml PO Q4H PRN PRN Reason: Cough Ceftriaxone Sodium (Rocephin 1 Gram Ivpb) 1 gm in 100 mls @ 100 mls/hr IVPB [facility]; Protocol Last Admin: 07/23/18 09:14 Dose: 100 mls/hr Azithromycin (Zithromax 500mg In Ns) 500 mg in 250 mls @ 167 mls/hr IVPB DAILY [facility]; Protocol Levothyroxine Sodium (Synthroid) 50 mcg PO ACB [facility] Last Admin: 07/23/18 06:41 Dose: 50 mcg Physical Exam - Constitutional Appears: No Acute Distress - Head Exam Head Exam: ATRAUMATIC, NORMOCEPHALIC - Eye Exam Eye Exam: EOMI Pupil Exam: PERRL - ENT Exam ENT Exam: Mucous Membranes Moist - Respiratory Exam Respiratory Exam: Rhonchi. absent: Rales, Wheezes - Cardiovascular Exam Cardiovascular Exam: Irregular Rhythm, +S1, +S2. absent: JVD, Rubs - GI/Abdominal Exam GI & Abdominal Exam: Normal Bowel Sounds, Soft. absent: Distended, Firm, Guarding, Hernia, Rigid, Tenderness - Neurological Exam Neurological exam: Alert, Oriented x3 - Psychiatric Exam Psychiatric exam: Normal Affect, Normal Mood - Skin Skin Exam: Dry, Intact, Normal Color, Warm Results - Vital Signs Recent Vital Signs: Last Vital Signs Temp 98 F 07/23/18 06:00 Pulse 101 H 07/23/18 08:21 Resp 22 07/23/18 06:00 BP 107/53 L 07/23/18 09:13 Pulse Ox 99 07/23/18 06:00 - Labs Result Diagrams: 07/23/18 06:00 07/23/18 06:00 Labs: Laboratory Results - last 24 hr 07/22/18 07/22/18 07/22/18 23:50 23:50 23:50 WBC 10.7 RBC 3.82 Hgb 11.2 L Hct 34.3 L MCV 89.8 MCH 29.3 MCHC 32.7 RDW 15.0 H Plt Count 170 MPV 10.1 Gran % 73.8 H Lymph % (Auto) 13.7 L [place] % (Auto) 12.2 H Eos % (Auto) 0.2 L Baso % (Auto) 0.1 Gran # 7.90 H Lymph # (Auto) 1.5 [place] # (Auto) 1.3 H Eos # (Auto) 0.0 Baso # (Auto) 0.01 Neutrophils % (Manual) Band Neutrophils % Lymphocytes % (Manual) Monocytes % (Manual) Metamyelocytes % Platelet Evaluation ESR PT INR APTT D-Dimer, Quantitative pCO2 pO2 28 L HCO3 ABG pH ABG Total CO2 ABG O2 Saturation ABG O2 Content ABG Base Excess ABG Hemoglobin ABG Carboxyhemoglobin POC ABG HHb (Measured) ABG Methemoglobin ABG O2 Capacity VBG pH 7.32 VBG pCO2 57.0 VBG HCO3 29.4 H VBG Total CO2 31.1 H VBG O2 Sat (Calc) 50.3 VBG Base Excess 2.0 VBG Potassium 4.3 Hgb O2 Saturation Sodium 136.0 138 Chloride 99.0 98 Glucose 99 Lactate 1.3 FiO2 21.0 Potassium 4.3 Carbon Dioxide 29 Anion Gap 16 BUN 19 Creatinine 1.1 Est GFR ( Amer) > 60 Est GFR (Non-Af Amer) > 60 Random Glucose 97 Calcium 9.1 Phosphorus Magnesium 1.8 Total Bilirubin 1.4 H AST 30 ALT 25 Alkaline Phosphatase 88 Troponin I < 0.01 NT-Pro-B Natriuret Pep 4350 H Total Protein 8.7 H Albumin 4.6 Globulin 4.1 Albumin/Globulin Ratio 1.1 TSH 3rd Generation Venous Blood Potassium 4.3 07/22/18 07/22/18 07/23/18 23:50 23:50 04:18 WBC RBC Hgb Hct MCV MCH MCHC RDW Plt Count MPV Gran % Lymph % (Auto) [place] % (Auto) Eos % (Auto) Baso % (Auto) Gran # Lymph # (Auto) [place] # (Auto) Eos # (Auto) Baso # (Auto) Neutrophils % (Manual) Band Neutrophils % Lymphocytes % (Manual) Monocytes % (Manual) Metamyelocytes % Platelet Evaluation ESR 80 H PT 13.9 H INR 1.21 APTT 33.8 D-Dimer, Quantitative 366 H pCO2 37 pO2 66.0 L HCO3 24.0 ABG pH 7.42 ABG Total CO2 25.1 ABG O2 Saturation 95.9 ABG O2 Content 13.5 L ABG Base Excess -0.3 ABG Hemoglobin 10.4 L ABG Carboxyhemoglobin 2.9 H POC ABG HHb (Measured) 3.9 ABG Methemoglobin 1.1 ABG O2 Capacity 14.1 L VBG pH VBG pCO2 VBG HCO3 VBG Total CO2 VBG O2 Sat (Calc) VBG Base Excess VBG Potassium Hgb O2 Saturation 92.1 L Sodium Chloride Glucose Lactate FiO2 28.0 Potassium Carbon Dioxide Anion Gap BUN Creatinine Est GFR ( Amer) Est GFR (Non-Af Amer) Random Glucose Calcium Phosphorus Magnesium Total Bilirubin AST ALT Alkaline Phosphatase Troponin I NT-Pro-B Natriuret Pep Total Protein Albumin Globulin Albumin/Globulin Ratio TSH 3rd Generation Venous Blood Potassium 07/23/18 07/23/18 07/23/18 06:00 06:00 06:00 WBC 12.7 H RBC 3.54 Hgb 10.3 L Hct 31.3 L MCV 88.4 MCH 29.1 MCHC 32.9 RDW 14.8 H Plt Count 157 MPV 10.2 Gran % 92.7 H Lymph % (Auto) 4.3 L [place] % (Auto) 2.9 Eos % (Auto) 0.0 L Baso % (Auto) 0.1 Gran # 11.76 H Lymph # (Auto) 0.5 L [place] # (Auto) 0.4 Eos # (Auto) 0.0 Baso # (Auto) 0.01 Neutrophils % (Manual) 91 H Band Neutrophils % 3 H Lymphocytes % (Manual) 5 L Monocytes % (Manual) TEST NOT PERFORMED Metamyelocytes % 1 Platelet Evaluation Normal ESR PT INR APTT D-Dimer, Quantitative pCO2 pO2 HCO3 ABG pH ABG Total CO2 ABG O2 Saturation ABG O2 Content ABG Base Excess ABG Hemoglobin ABG Carboxyhemoglobin POC ABG HHb (Measured) ABG Methemoglobin ABG O2 Capacity VBG pH VBG pCO2 VBG HCO3 VBG Total CO2 VBG O2 Sat (Calc) VBG Base Excess VBG Potassium Hgb O2 Saturation Sodium 139 Chloride 102 Glucose Lactate FiO2 Potassium 3.6 Carbon Dioxide 24 Anion Gap 16 BUN 20 Creatinine 1.1 Est GFR ( Amer) > 60 Est GFR (Non-Af Amer) > 60 Random Glucose 158 H Calcium 8.6 Phosphorus 4.1 Magnesium Total Bilirubin 1.5 H AST 25 ALT 19 Alkaline Phosphatase 79 Troponin I 0.01 NT-Pro-B Natriuret Pep Total Protein 7.6 Albumin 3.9 Globulin 3.6 Albumin/Globulin Ratio 1.1 TSH 3rd Generation 1.48 Venous Blood Potassium Assessment & Plan - Assessment and Plan (Free Text) Plan: 87yo male with past medical history of CHF with preserved EF(2013), COPD, hypothyroidism, pneumonia, pulmonary hypertension, severe tricuspid regurgitation and atrial fibrillation (not on AC) that presented [place] [facility] [place] c/o shortness of breath likely secondary to pneumonia in setting of acute decompensated congestive heart failure CAP hx of CHF with preserved EF Hx of COPD hx of pulmonary hypertension hx of severe tricuspid regurgitation hx of afib (not on anticoagulation) hx of hypothyroidism -Patient has been started on rocephin/azithromycin pending cultures/sensitivity -He has also been started on tamiflu for empiric treatment of flu -Pancultures including blood, urine sputum cultures are pending -Procalcitonin is pending -Urine legionella/strep, rapid flu are pending -Echocardiogram is pending -f/u cardiology recommendations -CTA was reviewed -CXR reviewed Patient seen and case discussed/reviewed with attending, Dr. Vidales <Harjit Vidales - Last Filed: 07/23/18 21:28> Meds - Medications Medications: Current Medications Acetaminophen (Tylenol 325mg Tab) 650 mg PO Q6H PRN PRN Reason: Fever >100.4 F Albuterol/Ipratropium (Duoneb 3 Mg/0.5 Mg (3 Ml) Ud) 3 ml IH [id number] [facility] Last Admin: 07/23/18 13:55 Dose: 3 ml Albuterol/Ipratropium (Duoneb 3 Mg/0.5 Mg (3 Ml) Ud) 3 ml IH Q2H PRN PRN Reason: Shortness of Breath Aspirin (Aspirin Chewable) 81 mg PO DAILY [facility] Last Admin: 07/23/18 09:13 Dose: 81 mg Enoxaparin Sodium (Lovenox) 40 mg SC DAILY [facility]; Protocol Last Admin: 07/23/18 12:23 Dose: 40 mg Famotidine (Pepcid) 20 mg PO DAILY [facility] Furosemide (Lasix) 20 mg IVP Q12 [facility] Last Admin: 07/23/18 09:13 Dose: 20 mg Guaifenesin/Dextromethorphan (Robitussin Dm) 5 ml PO Q4H PRN PRN Reason: Cough Ceftriaxone Sodium (Rocephin 1 Gram Ivpb) 1 gm in 100 mls @ 100 mls/hr IVPB DAILY [facility]; Protocol Last Admin: 07/23/18 09:14 Dose: 100 mls/hr Azithromycin (Zithromax 500mg In Ns) 500 mg in 250 mls @ 167 mls/hr IVPB DAILY [facility]; Protocol Last Admin: 07/23/18 11:01 Dose: 167 mls/hr Levothyroxine Sodium (Synthroid) 50 mcg PO ACB [facility] Last Admin: 07/23/18 06:41 Dose: 50 mcg Oseltamivir Phosphate (Tamiflu Cap) 75 mg PO BID [facility]; Protocol Stop: 07/28/18 11:50 Last Admin: 07/23/18 14:12 Dose: 75 mg Results - Vital Signs Recent Vital Signs: Last Vital Signs Temp 97.8 F 07/23/18 17:07 Pulse 76 07/23/18 18:00 Resp 20 07/23/18 12:00 BP 127/71 07/23/18 17:07 Pulse Ox 97 07/23/18 11:51 - Labs Result Diagrams: 07/23/18 06:00 07/23/18 06:00 Labs: Laboratory Results - last 24 hr 07/22/18 07/22/18 07/22/18 23:50 23:50 23:50 WBC 10.7 RBC 3.82 Hgb 11.2 L Hct 34.3 L MCV 89.8 MCH 29.3 MCHC 32.7 RDW 15.0 H Plt Count 170 MPV 10.1 Gran % 73.8 H Lymph % (Auto) 13.7 L [place] % (Auto) 12.2 H Eos % (Auto) 0.2 L Baso % (Auto) 0.1 Gran # 7.90 H Lymph # (Auto) 1.5 [place] # (Auto) 1.3 H Eos # (Auto) 0.0 Baso # (Auto) 0.01 Neutrophils % (Manual) Band Neutrophils % Lymphocytes % (Manual) Monocytes % (Manual) Metamyelocytes % Platelet Evaluation ESR PT INR APTT D-Dimer, Quantitative pCO2 pO2 28 L HCO3 ABG pH ABG Total CO2 ABG O2 Saturation ABG O2 Content ABG Base Excess ABG Hemoglobin ABG Carboxyhemoglobin POC ABG HHb (Measured) ABG Methemoglobin ABG O2 Capacity VBG pH 7.32 VBG pCO2 57.0 VBG HCO3 29.4 H VBG Total CO2 31.1 H VBG O2 Sat (Calc) 50.3 VBG Base Excess 2.0 VBG Potassium 4.3 Hgb O2 Saturation Sodium 136.0 138 Chloride 99.0 98 Glucose 99 Lactate 1.3 FiO2 21.0 Potassium 4.3 Carbon Dioxide 29 Anion Gap 16 BUN 19 Creatinine 1.1 Est GFR ( Amer) > 60 Est GFR (Non-Af Amer) > 60 Random Glucose 97 Calcium 9.1 Phosphorus Magnesium 1.8 Total Bilirubin 1.4 H AST 30 ALT 25 Alkaline Phosphatase 88 Troponin I < 0.01 C-React Prot High Sens NT-Pro-B Natriuret Pep 4350 H Total Protein 8.7 H Albumin 4.6 Globulin 4.1 Albumin/Globulin Ratio 1.1 Procalcitonin TSH 3rd Generation Venous Blood Potassium 4.3 Urine Color Urine Appearance Urine pH Ur Specific [place] Urine Protein Urine Glucose (UA) Urine Ketones Urine Blood Urine Nitrate Urine Bilirubin Urine Urobilinogen Ur Leukocyte Esterase Urine RBC Urine WBC Ur Epithelial Cells Urine Bacteria Influenza Typ A,B (EIA) Ur L.pneumophila Ag 07/22/18 07/22/18 07/22/18 23:50 23:50 23:50 WBC RBC Hgb Hct MCV MCH MCHC RDW Plt Count MPV Gran % Lymph % (Auto) [place] % (Auto) Eos % (Auto) Baso % (Auto) Gran # Lymph # (Auto) [place] # (Auto) Eos # (Auto) Baso # (Auto) Neutrophils % (Manual) Band Neutrophils % Lymphocytes % (Manual) Monocytes % (Manual) Metamyelocytes % Platelet Evaluation ESR 80 H PT 13.9 H INR 1.21 APTT 33.8 D-Dimer, Quantitative 366 H pCO2 pO2 HCO3 ABG pH ABG Total CO2 ABG O2 Saturation ABG O2 Content ABG Base Excess ABG Hemoglobin ABG Carboxyhemoglobin POC ABG HHb (Measured) ABG Methemoglobin ABG O2 Capacity VBG pH VBG pCO2 VBG HCO3 VBG Total CO2 VBG O2 Sat (Calc) VBG Base Excess VBG Potassium Hgb O2 Saturation Sodium Chloride Glucose Lactate FiO2 Potassium Carbon Dioxide Anion Gap BUN Creatinine Est GFR ( Amer) Est GFR (Non-Af Amer) Random Glucose Calcium Phosphorus Magnesium Total Bilirubin AST ALT Alkaline Phosphatase Troponin I C-React Prot High Sens NT-Pro-B Natriuret Pep Total Protein Albumin Globulin Albumin/Globulin Ratio Procalcitonin < 0.05 L TSH 3rd Generation Venous Blood Potassium Urine Color Urine Appearance Urine pH Ur Specific [place] Urine Protein Urine Glucose (UA) Urine Ketones Urine Blood Urine Nitrate Urine Bilirubin Urine Urobilinogen Ur Leukocyte Esterase Urine RBC Urine WBC Ur Epithelial Cells Urine Bacteria Influenza Typ A,B (EIA) Ur L.pneumophila Ag 07/22/18 07/23/18 07/23/18 23:50 04:18 06:00 WBC RBC Hgb Hct MCV MCH MCHC RDW Plt Count MPV Gran % Lymph % (Auto) [place] % (Auto) Eos % (Auto) Baso % (Auto) Gran # Lymph # (Auto) [place] # (Auto) Eos # (Auto) Baso # (Auto) Neutrophils % (Manual) Band Neutrophils % Lymphocytes % (Manual) Monocytes % (Manual) Metamyelocytes % Platelet Evaluation ESR PT INR APTT D-Dimer, Quantitative pCO2 37 pO2 66.0 L HCO3 24.0 ABG pH 7.42 ABG Total CO2 25.1 ABG O2 Saturation 95.9 ABG O2 Content 13.5 L ABG Base Excess -0.3 ABG Hemoglobin 10.4 L ABG Carboxyhemoglobin 2.9 H POC ABG HHb (Measured) 3.9 ABG Methemoglobin 1.1 ABG O2 Capacity 14.1 L VBG pH VBG pCO2 VBG HCO3 VBG Total CO2 VBG O2 Sat (Calc) VBG Base Excess VBG Potassium Hgb O2 Saturation 92.1 L Sodium 139 Chloride 102 Glucose Lactate FiO2 28.0 Potassium 3.6 Carbon Dioxide 24 Anion Gap 16 BUN 20 Creatinine 1.1 Est GFR ( Amer) > 60 Est GFR (Non-Af Amer) > 60 Random Glucose 158 H Calcium 8.6 Phosphorus 4.1 Magnesium Total Bilirubin 1.5 H AST 25 ALT 19 Alkaline Phosphatase 79 Troponin I 0.01 C-React Prot High Sens > 15.00 H NT-Pro-B Natriuret Pep Total Protein 7.6 Albumin 3.9 Globulin 3.6 Albumin/Globulin Ratio 1.1 Procalcitonin TSH 3rd Generation Venous Blood Potassium Urine Color Urine Appearance Urine pH Ur Specific [place] Urine Protein Urine Glucose (UA) Urine Ketones Urine Blood Urine Nitrate Urine Bilirubin Urine Urobilinogen Ur Leukocyte Esterase Urine RBC Urine WBC Ur Epithelial Cells Urine Bacteria Influenza Typ A,B (EIA) Ur L.pneumophila Ag 07/23/18 07/23/18 07/23/18 06:00 06:00 09:00 WBC 12.7 H RBC 3.54 Hgb 10.3 L Hct 31.3 L MCV 88.4 MCH 29.1 MCHC 32.9 RDW 14.8 H Plt Count 157 MPV 10.2 Gran % 92.7 H Lymph % (Auto) 4.3 L [place] % (Auto) 2.9 Eos % (Auto) 0.0 L Baso % (Auto) 0.1 Gran # 11.76 H Lymph # (Auto) 0.5 L [place] # (Auto) 0.4 Eos # (Auto) 0.0 Baso # (Auto) 0.01 Neutrophils % (Manual) 91 H Band Neutrophils % 3 H Lymphocytes % (Manual) 5 L Monocytes % (Manual) TEST NOT PERFORMED Metamyelocytes % 1 Platelet Evaluation Normal ESR PT INR APTT D-Dimer, Quantitative pCO2 pO2 HCO3 ABG pH ABG Total CO2 ABG O2 Saturation ABG O2 Content ABG Base Excess ABG Hemoglobin ABG Carboxyhemoglobin POC ABG HHb (Measured) ABG Methemoglobin ABG O2 Capacity VBG pH VBG pCO2 VBG HCO3 VBG Total CO2 VBG O2 Sat (Calc) VBG Base Excess VBG Potassium Hgb O2 Saturation Sodium Chloride Glucose Lactate FiO2 Potassium Carbon Dioxide Anion Gap BUN Creatinine Est GFR ( Amer) Est GFR (Non-Af Amer) Random Glucose Calcium Phosphorus Magnesium Total Bilirubin AST ALT Alkaline Phosphatase Troponin I C-React Prot High Sens NT-Pro-B Natriuret Pep Total Protein Albumin Globulin Albumin/Globulin Ratio Procalcitonin 0.30 TSH 3rd Generation 1.48 Venous Blood Potassium Urine Color Urine Appearance Urine pH Ur Specific [place] Urine Protein Urine Glucose (UA) Urine Ketones Urine Blood Urine Nitrate Urine Bilirubin Urine Urobilinogen Ur Leukocyte Esterase Urine RBC Urine WBC Ur Epithelial Cells Urine Bacteria Influenza Typ A,B (EIA) Ur L.pneumophila Ag 07/23/18 07/23/18 07/23/18 12:00 12:30 13:20 WBC RBC Hgb Hct MCV MCH MCHC RDW Plt Count MPV Gran % Lymph % (Auto) [place] % (Auto) Eos % (Auto) Baso % (Auto) Gran # Lymph # (Auto) [place] # (Auto) Eos # (Auto) Baso # (Auto) Neutrophils % (Manual) Band Neutrophils % Lymphocytes % (Manual) Monocytes % (Manual) Metamyelocytes % Platelet Evaluation ESR PT INR APTT D-Dimer, Quantitative pCO2 pO2 HCO3 ABG pH ABG Total CO2 ABG O2 Saturation ABG O2 Content ABG Base Excess ABG Hemoglobin ABG Carboxyhemoglobin POC ABG HHb (Measured) ABG Methemoglobin ABG O2 Capacity VBG pH VBG pCO2 VBG HCO3 VBG Total CO2 VBG O2 Sat (Calc) VBG Base Excess VBG Potassium Hgb O2 Saturation Sodium Chloride Glucose Lactate FiO2 Potassium Carbon Dioxide Anion Gap BUN Creatinine Est GFR ( Amer) Est GFR (Non-Af Amer) Random Glucose Calcium Phosphorus Magnesium Total Bilirubin AST ALT Alkaline Phosphatase Troponin I C-React Prot High Sens NT-Pro-B Natriuret Pep Total Protein Albumin Globulin Albumin/Globulin Ratio Procalcitonin TSH 3rd Generation Venous Blood Potassium Urine Color Light yellow Urine Appearance Clear Urine pH 5.5 Ur Specific [place] 1.010 Urine Protein Negative Urine Glucose (UA) Negative Urine Ketones Negative Urine Blood Small H Urine Nitrate Negative Urine Bilirubin Negative Urine Urobilinogen 0.2 Ur Leukocyte Esterase Negative Urine RBC 1 - 3 Urine WBC 0 - 2 Ur Epithelial Cells 0 - 2 Urine Bacteria Trace Influenza Typ A,B (EIA) Negative for flu a/b Ur L.pneumophila Ag Negative 07/23/18 14:00 WBC RBC Hgb Hct MCV MCH MCHC RDW Plt Count MPV Gran % Lymph % (Auto) [place] % (Auto) Eos % (Auto) Baso % (Auto) Gran # Lymph # (Auto) [place] # (Auto) Eos # (Auto) Baso # (Auto) Neutrophils % (Manual) Band Neutrophils % Lymphocytes % (Manual) Monocytes % (Manual) Metamyelocytes % Platelet Evaluation ESR PT INR APTT D-Dimer, Quantitative pCO2 pO2 HCO3 ABG pH ABG Total CO2 ABG O2 Saturation ABG O2 Content ABG Base Excess ABG Hemoglobin ABG Carboxyhemoglobin POC ABG HHb (Measured) ABG Methemoglobin ABG O2 Capacity VBG pH VBG pCO2 VBG HCO3 VBG Total CO2 VBG O2 Sat (Calc) VBG Base Excess VBG Potassium Hgb O2 Saturation Sodium Chloride Glucose Lactate FiO2 Potassium Carbon Dioxide Anion Gap BUN Creatinine Est GFR ( Amer) Est GFR (Non-Af Amer) Random Glucose Calcium Phosphorus Magnesium Total Bilirubin AST ALT Alkaline Phosphatase Troponin I < 0.01 C-React Prot High Sens NT-Pro-B Natriuret Pep Total Protein Albumin Globulin Albumin/Globulin Ratio Procalcitonin TSH 3rd Generation Venous Blood Potassium Urine Color Urine Appearance Urine pH Ur Specific [place] Urine Protein Urine Glucose (UA) Urine Ketones Urine Blood Urine Nitrate Urine Bilirubin Urine Urobilinogen Ur Leukocyte Esterase Urine RBC Urine WBC Ur Epithelial Cells Urine Bacteria Influenza Typ A,B (EIA) Ur L.pneumophila Ag Assessment & Plan - Assessment and Plan (Free Text) Plan: Infectious diseases Attending Physician Attestation Patient seen and examined, discussed with caregivers non medical. I have reviewed the patient's history of present illness, past medical, social, personal and family histories, pertinent physical exam findings, course so far in this hospital admission, pertinent laboratory and imaging results. I agree with the above findings, assessment and plan. In addition, we have started Rocephin and Zithomax for patient with probable CAP on top of acute on chronic CHF Follow up sputum, blood cx, PCT, urine Legionella Ag and will monitor clinically.
--- NOTE | 2018-07-23 10:47 | RAD ---
Date of service: 07/23/2018 HISTORY: cough/sob COMPARISON: 01/12/2017. FINDINGS: LUNGS: Acute moderate pulmonary edema. PLEURA: No significant pleural effusion identified, no pneumothorax apparent. CARDIOVASCULAR: Atherosclerotic calcifications identified primarily aortic arch. Cardiomegaly/cardiogenic pulmonary edema. OSSEOUS STRUCTURES: No significant abnormalities. VISUALIZED UPPER ABDOMEN: Normal. OTHER FINDINGS: None. IMPRESSION: Acute and presumed cardiogenic pulmonary edema.
[2018-07-23] MEDS: Azithromycin 500MG/NS 250ml 500 MG/250 ML BAG IVPB SCH (11:01)
[2018-07-23] MEDS: Enoxaparin 40 mg Syringe SC SCH (12:23)
[2018-07-23 13:29] LABS: PH,URINE 5.5 (4.7-8.0); URINE BILIRUBIN NEGATIVE (NEGATIVE); URINE BLOOD SMALL (NEGATIVE); URINE GLUCOSE (UA) NEGATIVE (NEGATIVE); URINE LEUKOCYTE ESTERASE NEGATIVE Leu/uL (NEGATIVE); URINE PROTEIN NEGATIVE mg/dL (<30 mg/dL); URINE UROBILINOGEN 0.2 E.U./dL (<1 E.U./dL)
--- NOTE | 2018-07-23 13:31 | CP.PCM.APN ---
Subjective - Date & Time of Evaluation Date of Evaluation: 07/23/18 Time of Evaluation: 11:00 - Subjective Subjective: 87 y/o male, pmh including copd/chf/pneumonia/pulmonary htn/Severe TR mild to moderate MR, atrial fibrillation nkda, c/o cough/shortness of breath on exertion started about 12 hours prior to ED arrival , hypoxic room air @ 89 percent when off oxygen, admitted with CHF, pleural effusion, pneumonia, currently undergoing work up. Pt. seen and examined in bed. Appeared to be resting comfortabley Pt. reports had been coughing on and off for the entire day, coughing with wheezing, coughing with shortness of breath, exacerbated by walking, while at home. Denied chest pain, palpitations, dizziness or lightheadedness, denied fever or chills. Review of Systems - Review of Systems Systems not reviewed;Unavailable: Respiratory Distress - Constitutional Constitutional: As Per HPI - Cardiovascular Cardiovascular: As Per HPI - Respiratory Respiratory: Dyspnea - Musculoskeletal Musculoskeletal: As Per HPI - Neurological Neurological: As Per HPI Objective - Vital Signs/Intake and Output Vital Signs (last 24 hours): Temp Pulse Resp BP Pulse Ox 97.4 F L 70 20 120/55 L 97 07/23/18 12:00 07/23/18 12:00 07/23/18 12:00 07/23/18 12:00 07/23/18 11:51 Intake and Output: 07/23/18 07/23/18 06:59 18:59 Intake Total 120 Output Total 350 Balance -230 - Medications Medications: Current Medications Acetaminophen (Tylenol 325mg Tab) 650 mg PO Q6H PRN PRN Reason: Fever >100.4 F Albuterol/Ipratropium (Duoneb 3 Mg/0.5 Mg (3 Ml) Ud) 3 ml IH [id number] [facility] Last Admin: 07/23/18 08:20 Dose: 3 ml Albuterol/Ipratropium (Duoneb 3 Mg/0.5 Mg (3 Ml) Ud) 3 ml IH Q2H PRN PRN Reason: Shortness of Breath Aspirin (Aspirin Chewable) 81 mg PO DAILY [facility] Last Admin: 07/23/18 09:13 Dose: 81 mg Enoxaparin Sodium (Lovenox) 40 mg SC DAILY [facility]; Protocol Last Admin: 07/23/18 12:23 Dose: 40 mg Famotidine (Pepcid) 20 mg PO DAILY [facility] Furosemide (Lasix) 20 mg IVP Q12 [facility] Last Admin: 07/23/18 09:13 Dose: 20 mg Guaifenesin/Dextromethorphan (Robitussin Dm) 5 ml PO Q4H PRN PRN Reason: Cough Ceftriaxone Sodium (Rocephin 1 Gram Ivpb) 1 gm in 100 mls @ 100 mls/hr IVPB DAILY [facility]; Protocol Last Admin: 07/23/18 09:14 Dose: 100 mls/hr Azithromycin (Zithromax 500mg In Ns) 500 mg in 250 mls @ 167 mls/hr IVPB DAILY [facility]; Protocol Last Admin: 07/23/18 11:01 Dose: 167 mls/hr Levothyroxine Sodium (Synthroid) 50 mcg PO ACB [facility] Last Admin: 07/23/18 06:41 Dose: 50 mcg Oseltamivir Phosphate (Tamiflu Cap) 75 mg PO BID [facility]; Protocol Stop: 07/28/18 11:50 - Labs Labs: 07/23/18 06:00 07/23/18 06:00 PT 13.9 SECONDS (9.4-12.5) H 07/22/18 23:50 INR 1.21 07/22/18 23:50 APTT 33.8 Seconds (25.1-36.5) 07/22/18 23:50 - Constitutional Appears: Well - Head Exam Head Exam: NORMAL INSPECTION - Eye Exam Eye Exam: Normal appearance - ENT Exam ENT Exam: Mucous Membranes Moist - Neck Exam Neck Exam: Normal Inspection - Respiratory Exam Respiratory Exam: NORMAL BREATHING PATTERN Additional comments: crackles auscultated to b/l lung bases. - Cardiovascular Exam Cardiovascular Exam: REGULAR RHYTHM, +S1, +S2 - GI/Abdominal Exam GI & Abdominal Exam: Soft, Normal Bowel Sounds - Rectal Exam Rectal Exam: Deferred - Extremities Exam Extremities Exam: Full ROM, Normal Inspection - Back Exam Back Exam: NORMAL INSPECTION - Neurological Exam Neurological Exam: Alert, Awake, Oriented x3 - Psychiatric Exam Psychiatric exam: Normal Affect - Skin Skin Exam: Normal Color, Warm Assessment and Plan - Assessment and Plan (Free Text) Assessment: Radiology Results Chest X-Ray 07/23/18 00:05 IMPRESSION: Acute and presumed cardiogenic pulmonary edema. Chest CT 07/23/18 00:32 IMPRESSION: No evidence of acute pulmonary embolus. Small to moderate size right pleural effusion. Cardiomegaly. Moderate pulmonary vascular congestion and scattered patchy ground-glass opacities. Foci of airspace consolidation at the right middle and bilateral lower lobes may represent pneumonia or aspiration versus less likely severe congestion and pulmonary edema. Mildly enlarged bilateral nonspecific hilar lymph nodes. Additional findings as discussed above. Preliminary report was submitted by [facility] Radiology contains concordant findings Chest X-Ray 07/26/18 06:00 IMPRESSION: Developing limited infiltrate mid to inferior right lung zone with remaining lung morataya clear. Diminishing pulmonary vascular congestion. Stable cardiac silhouette. Assessment / Plan of Care: 1. CHF- continue Lasix as per cardiology, and monitor I's and O's, daily weights, echo result pending. 2. Multifocal pneumonia- Continue IV Rocephin/Zithromax as per I.D. Results of blood cx and urine cx are pending. Procal result pending. 3. Leukocytosis secondary to pneumonia. Will trend WBC, Cbc. PT eval is pending, Will continue to monitor closely and follow clinical status.
[2018-07-23 13:34] LABS: URINE APPEARANCE CLEAR (CLEAR); URINE COLOR LIGHT YELLOW (YELLOW)
[2018-07-23 13:39] LABS: URINE BACTERIA TRACE (NEG); URINE EPITHELIAL CELLS 0 - 2 /hpf (0-5); URINE WBC 0 - 2 /hpf (0-6)
--- NOTE | 2018-07-23 15:11 | CARD ---
APPROVED REPORT Date of service: 07/22/2018 EKG Measurement Heart [id number] <Conclusion> Atrial fibrillation Right axis deviation Anteroseptal infarct, age undetermined Abnormal ECG
--- NOTE | 2018-07-23 16:31 | CARD ---
APPROVED REPORT Date of service: 07/23/2018 EXAM: Two-dimensional and M-mode echocardiogram with Doppler and color Doppler. INDICATION Dyspnea COR PULMONALE 2D DIMENSIONS RVDd3.6 (2.9-3.5cm)Left Atrium (2D)4.5 (1.6-4.0cm) IVSd1.0 (0.7-1.1cm)LVDd3.9 (3.9-5.9cm) PWd1.2 (0.7-1.1cm)LVDs2.8 (2.5-4.0cm) FS (%) 28.9 %LVEF (%)56.1 (>50%) M-Mode DIMENSIONS Aortic Root3.40 (2.2-3.7cm)Aortic Cusp Exc.1.60 (1.5-2.0cm) Aortic Valve AoV Peak Ohcifoxf810.0cm/David Peak GR.12mmHg Mitral Valve MV E Nikuezmw446.0cm/sMV A Pcmnniuj48.7cm/sE/A ratio3.0 TDI Lateral E' Peak V15.90cm/sE/Lateral E'8.5E/Medial E'0.0 Pulmonary Valve PV Peak Nsekvcma54.7cm/sPV Peak Grad.3mmHg Tricuspid Valve TR Peak Kwaqpkmn418pr/sRAP [id number] Peak Gr.97mmHg [id number] LEFT VENTRICLE The left ventricle is normal size. There is borderline concentric left ventricular hypertrophy. The left ventricular function is normal. The left ventricular ejection fraction is within the normal range. There is a flattened septum consistent with right ventricle pressure overload. RIGHT VENTRICLE The right ventricle is mildly dilated. ATRIA The left atrium is mildly dilated. The right atrium is moderately dilated. The interatrial septum is intact with no evidence for an atrial septal defect. AORTIC VALVE The aortic valve is normal in structure. No aortic regurgitation is present. There is no aortic valvular stenosis. MITRAL VALVE The mitral valve is normal in structure. Mitral regurgitation is mild. TRICUSPID VALVE The tricuspid valve is normal in structure. There is severe tricuspid regurgitation. There is severe pulmonary hypertension. PULMONIC VALVE The pulmonary valve is normal in structure. There is mild pulmonic valvular regurgitation. GREAT VESSELS The aortic root is normal in size. The ascending aorta is normal in size. The IVC is normal in size and collapses >50% with inspiration. PERICARDIAL EFFUSION There is no pleural effusion. There is no pericardial effusion. <Conclusion> Biatrial enlargement. Borderline concentric LVH. Normal LV systolic function. Septal flattening consistent with RV pressure overload. Mild MR. Mild PI. Severe TR. Severe pulmonary HTN with systemic pressures noted.
--- NOTE | 2018-07-23 18:59 | CARD ---
APPROVED REPORT Date of service: 07/23/2018 EKG Measurement Heart [id number] <Conclusion> Atrial fibrillation Left bundle branch block Abnormal ECG
--- NOTE | 2018-07-23 19:27 | CARD ---
APPROVED REPORT Date of service: 07/23/2018 EKG Measurement Heart [id number] <Conclusion> Atrial fibrillation LBBB Abnormal ECG
[2018-07-24] MEDS: Albuterol-Ipratrop 3 mg / 0.5 (3 ml) UD IH SCH ×4 (03:00→20:00)
[2018-07-24 08:07] LABS: GRAN # 9.83 (1.4-6.5); GRAN % 84.9 % (50.0-68.0); HEMOGLOBIN 9.9 g/dL (14.0-18.0); LYMPH # 0.9 (1.2-3.4); MEAN CORPUSCULAR HEMOGLOBIN 28.5 pg (25.0-35.0); MEAN PLATELET VOLUME 10.7 fl (7.0-11.0); MONO # 0.8 (0.1-0.6); MONO % 7.1 % (1.0-6.0); RBC 3.47 10^6/uL (3.5-6.1); RED CELL DISTRIBUTION WIDTH 15.3 % (11.5-14.5); WHITE BLOOD COUNT 11.6 10^3/uL (4.5-11.0)
[2018-07-24 08:42] LABS: ALB/GLOB RATIO 1.3 (1.1-1.8); ALBUMIN 4.2 g/dL (3.0-4.8); CALCIUM 8.6 mg/dL (8.4-10.5)
[2018-07-24] MEDS: cefTRIAXone 1 gm 1 GM/100 ML BAG IVPB SCH (09:58)
[2018-07-24] MEDS: Azithromycin 500MG/NS 250ml 500 MG/250 ML BAG IVPB SCH (09:59)
[2018-07-24] MEDS: Levothyroxine 50 MCG TAB PO SCH (10:03)
[2018-07-24] MEDS: Enoxaparin 40 mg Syringe SC SCH (10:03)
--- NOTE | 2018-07-24 10:14 | PN ---
DATE: 07/24/2018 SUBJECTIVE: The patient is seen lying in bed, on telemetry. He is comfortable. He feels better. He wants to go home. He remains in atrial fibrillation. CURRENT MEDICATIONS: Include aspirin, DuoNeb inhaler, Lasix 20 mg IV every 12 hours, Lovenox, Pepcid, Rocephin, Synthroid, Tamiflu, and Zithromax. OBJECTIVE: GENERAL: He is a very elderly man who appears comfortable at rest. VITAL SIGNS: Blood pressure 102/60 with pulse of 66, in atrial fibrillation, respirations 16. He is afebrile. NECK: No JVD. CHEST: Bilateral scattered rhonchi heard. HEART: PMI displaced laterally with a systolic murmur present at the lower left sternal border. ABDOMEN: Soft and nontender. Normoactive bowel sounds. EXTREMITIES: No edema. LABORATORY DATA: Morning blood work is pending. Cardiac enzymes were all negative. DIAGNOSTIC DATA: His echocardiogram revealed a dilated left and right ventricle as well as a biatrial enlargement. Borderline concentric LVH was present. Left ventricular systolic function was normal and mild mitral regurgitation was present. Mild pulmonic insufficiency was noted. Severe tricuspid regurgitation with systemic artery systolic pressures were noted as well. IMPRESSION: 1. Severe chronic obstructive pulmonary disease with severe pulmonary hypertension. 2. Right lower lobe infiltrate, presumed pneumonia. 3. Chronic atrial fibrillation, not currently anticoagulated due to severe hematuria in the past. RECOMMENDATIONS: Antibiotic therapy should continue. Avoidance of excessive volume infusion is advised. Given his advanced age, conservative management of his pulmonary hypertension is advised. Anticoagulation will continue to be withheld given his recurrent gross hematuria in the past. We will continue to follow and make further recommendations as appropriate. Silvio Martinez MD
--- NOTE | 2018-07-24 12:10 | CP.PCM.PN ---
Subjective - Date & Time of Evaluation Date of Evaluation: 07/24/18 Time of Evaluation: 11:30 - Subjective Subjective: Comfortable, no fevers, starting to bring up phlegm. Objective - Vital Signs/Intake and Output Vital Signs (last 24 hours): Temp Pulse Resp BP Pulse Ox 97.8 F 76 20 127/71 97 07/23/18 17:07 07/23/18 18:00 07/23/18 12:00 07/23/18 17:07 07/23/18 11:51 Intake and Output: 07/23/18 07/24/18 18:59 06:59 Intake Total 350 660 Output Total 1000 Balance 350 -340 - Medications Medications: Current Medications Acetaminophen (Tylenol 325mg Tab) 650 mg PO Q6H PRN PRN Reason: Fever >100.4 F Albuterol/Ipratropium (Duoneb 3 Mg/0.5 Mg (3 Ml) Ud) 3 ml IH [id number] [facility] Last Admin: 07/23/18 13:55 Dose: 3 ml Albuterol/Ipratropium (Duoneb 3 Mg/0.5 Mg (3 Ml) Ud) 3 ml IH Q2H PRN PRN Reason: Shortness of Breath Aspirin (Aspirin Chewable) 81 mg PO DAILY [facility] Last Admin: 07/23/18 09:13 Dose: 81 mg Enoxaparin Sodium (Lovenox) 40 mg SC DAILY [facility]; Protocol Last Admin: 07/23/18 12:23 Dose: 40 mg Famotidine (Pepcid) 20 mg PO DAILY [facility] Furosemide (Lasix) 20 mg IVP Q12 [facility] Last Admin: 07/23/18 09:13 Dose: 20 mg Guaifenesin/Dextromethorphan (Robitussin Dm) 5 ml PO Q4H PRN PRN Reason: Cough Ceftriaxone Sodium (Rocephin 1 Gram Ivpb) 1 gm in 100 mls @ 100 mls/hr IVPB DAILY [facility]; Protocol Last Admin: 07/23/18 09:14 Dose: 100 mls/hr Azithromycin (Zithromax 500mg In Ns) 500 mg in 250 mls @ 167 mls/hr IVPB DAILY [facility]; Protocol Last Admin: 07/23/18 11:01 Dose: 167 mls/hr Levothyroxine Sodium (Synthroid) 50 mcg PO ACB [facility] Last Admin: 07/23/18 06:41 Dose: 50 mcg Oseltamivir Phosphate (Tamiflu Cap) 75 mg PO BID [facility]; Protocol Stop: 07/28/18 11:50 Last Admin: 07/23/18 14:12 Dose: 75 mg - Labs Labs: 07/23/18 06:00 07/23/18 06:00 PT 13.9 SECONDS (9.4-12.5) H 07/22/18 23:50 INR 1.21 07/22/18 23:50 APTT 33.8 Seconds (25.1-36.5) 07/22/18 23:50 - Constitutional Appears: No Acute Distress, Chronically Ill - Head Exam Head Exam: NORMAL INSPECTION - ENT Exam ENT Exam: Mucous Membranes Moist - Neck Exam Neck Exam: absent: Meningismus - Respiratory Exam Respiratory Exam: Decreased Breath Sounds - Cardiovascular Exam Cardiovascular Exam: +S1, +S2 - GI/Abdominal Exam GI & Abdominal Exam: Soft. absent: Tenderness Assessment and Plan - Assessment and Plan (Free Text) Plan: Assessment probable CAP on top of acute on chronic CHF chronic CHF COPD pulmonary HTN atrial fibrillation hypothyroidism Plan continue Rocephin and Zithomax day 2; follow up final blood, sputum cx results reviewed CT chest PCT is 0.3 but CRP is elevated will continue to monitor clinically
--- NOTE | 2018-07-24 13:02 | CP.PCM.PN ---
<Mane Jaime - Last Filed: 07/24/18 13:48> Subjective - Date & Time of Evaluation Date of Evaluation: 07/24/18 Time of Evaluation: 09:40 - Subjective Subjective: Medicine Progress Note for Hospitalist Service, Dr. Gini Jaime, DO PGY-1 Pt seen and examined at bedside this am. States he is feeling a little better, admits to coughing up productive sputum. Otherwise denies any acute complaints. No acute events reported overnight by staff. Denies fever, chills, chest pain, sob, n/v/d/c, abd pain, urinary complaints, or other symptoms. Objective - Vital Signs/Intake and Output Vital Signs (last 24 hours): Temp Pulse Resp BP Pulse Ox 99.3 F 63 18 151/79 H 97 07/24/18 12:00 07/24/18 12:00 07/24/18 12:00 07/24/18 12:00 07/23/18 11:51 Intake and Output: 07/24/18 07/24/18 06:59 18:59 Intake Total 920 Output Total 1400 Balance -480 - Medications Medications: Current Medications Acetaminophen (Tylenol 325mg Tab) 650 mg PO Q6H PRN PRN Reason: Fever >100.4 F Albuterol/Ipratropium (Duoneb 3 Mg/0.5 Mg (3 Ml) Ud) 3 ml IH [id number] [facility] Last Admin: 07/24/18 08:00 Dose: 3 ml Albuterol/Ipratropium (Duoneb 3 Mg/0.5 Mg (3 Ml) Ud) 3 ml IH Q2H PRN PRN Reason: Shortness of Breath Aspirin (Aspirin Chewable) 81 mg PO DAILY [facility] Last Admin: 07/24/18 10:03 Dose: 81 mg Enoxaparin Sodium (Lovenox) 40 mg SC DAILY [facility]; Protocol Last Admin: 07/24/18 10:03 Dose: 40 mg Famotidine (Pepcid) 20 mg PO DAILY [facility] Last Admin: 07/24/18 10:03 Dose: 20 mg Furosemide (Lasix) 20 mg IVP Q12 [facility] Last Admin: 07/24/18 10:03 Dose: 20 mg Guaifenesin/Dextromethorphan (Robitussin Dm) 5 ml PO Q4H PRN PRN Reason: Cough Last Admin: 07/24/18 09:58 Dose: 5 ml Ceftriaxone Sodium (Rocephin 1 Gram Ivpb) 1 gm in 100 mls @ 100 mls/hr IVPB DAILY [facility]; Protocol Last Admin: 07/24/18 09:58 Dose: 100 mls/hr Azithromycin (Zithromax 500mg In Ns) 500 mg in 250 mls @ 167 mls/hr IVPB DAILY [facility]; Protocol Last Admin: 07/24/18 09:59 Dose: 167 mls/hr Levothyroxine Sodium (Synthroid) 50 mcg PO ACB [facility] Last Admin: 07/24/18 10:03 Dose: 50 mcg Oseltamivir Phosphate (Tamiflu Cap) 75 mg PO BID [facility]; Protocol Stop: 07/28/18 11:50 Last Admin: 07/24/18 10:03 Dose: 75 mg - Labs Labs: 07/24/18 07:30 07/24/18 07:30 PT 13.9 SECONDS (9.4-12.5) H 07/22/18 23:50 INR 1.21 07/22/18 23:50 APTT 33.8 Seconds (25.1-36.5) 07/22/18 23:50 - Constitutional Appears: Non-toxic, No Acute Distress - Head Exam Head Exam: ATRAUMATIC, NORMOCEPHALIC - Eye Exam Eye Exam: EOMI, Normal appearance, PERRL - ENT Exam ENT Exam: Mucous Membranes Moist - Neck Exam Neck Exam: Full ROM, Normal Inspection. absent: Tenderness - Respiratory Exam Respiratory Exam: Rales (Prominent in R lower lung morataya), NORMAL BREATHING PATTERN. absent: Chest Wall Tenderness, Respiratory Distress - Cardiovascular Exam Cardiovascular Exam: +S1, +S2. absent: Gallop, Rubs, Murmur Additional comments: Irregularly irregular rhythm - GI/Abdominal Exam GI & Abdominal Exam: Soft, Normal Bowel Sounds. absent: Distended, Guarding, Tenderness, Organomegaly - Neurological Exam Neurological Exam: Alert, Awake, CN II-XII Intact, Oriented x3 - Psychiatric Exam Psychiatric exam: Normal Affect, Normal Mood - Skin Skin Exam: Dry, Intact, Normal Color, Warm Assessment and Plan - Assessment and Plan (Free Text) Assessment: 87 year old male with PMHx of CHF with preserved EF in 2013, COPD, hypothyroidism, pneumonia, pulmonary hypertension, severe tricuspid regurgitation and A-fib not on anticoagulation, presenting to the ED for one day history of SOB. Pt admitted for management of multifocal PNA. Plan: Pneumonia/Pleural Effusion -CTA 07/23: no evidence of acute PE, small to moderate sized R pleural effusion, cardiomegaly, moderate pulmonary vascular congestion and scattered patchy ground-glass opacities; foci of airspace consolidation at R middle and b/l lower lobes may represent PNA or aspiration versus less likely severe congestion and pulmonary edema; mildly enlarged b/l nonspecific hilar lymph nodes -Procal 0.3 -C/w Rocephin, Azithromycin day #2 -ESR elevated at 80; CRP > 15; SWATI level pending -Lactate WNL -Blood cxs no growth after 24 hrs -Legionella neg, influenza neg, strep pneumo pending -PT/OT -Fall precautions -Aspiration precautions -Chest PT Hx of Diastolic CHF -Per previous records, likely etiology from cor pulmonale with severe pulmonary hypertension -CXR 07/23: acute and presumed cardiogenic pulmonary edema -BNP elevated -Lasix 20 IV BID -Previous echo in 2013 showed normal LVEF, RVSP 92, moderate MR, severe TR -Echo 07/23: biatrial enlargement, borderline concentric LVH, normal LV systolic function, septal flattening consistent w/ RV pressure overload, mild MR, mild PI, Severe TR, severe pulm HTN -Troponins neg x3 -Cardiology consulted, Dr. Banda, recs appreciated Hx of chronic afib -Initial EKG showed afib at 100bpm, no ST changes -Chadsvasc score is 3 -Not on home anticoagulation -ASA 81mg daily -Cardiology consulted Hx of COPD -VBG does not show CO2 retention, unlikely COPD exacerbation -ABG wnl -C/w supplemental O2 as needed -Duonebs prn and ella Hx of Hypothyrodism -C/w synthroid 50 mcg daily -TSH 1.48 PPX/Diet -Lovenox and pepcid -HHD Pt seen, examined with, and plan discussed with Dr. Robert, attending physician. Mane Jaime DO PGY-1, Building Maintenance Mechanic pager #[phone] <Gini Robert R - Last Filed: 07/25/18 14:05> Objective - Vital Signs/Intake and Output Vital Signs (last 24 hours): Temp Pulse Resp BP Pulse Ox 97.4 F L 76 18 113/70 95 07/25/18 12:00 07/25/18 12:00 07/25/18 12:00 07/25/18 12:00 07/25/18 06:00 Intake and Output: 07/25/18 07/25/18 06:59 18:59 Intake Total 660 Output Total 780 Balance -120 - Medications Medications: Current Medications Acetaminophen (Tylenol 325mg Tab) 650 mg PO Q6H PRN PRN Reason: Fever >100.4 F Albuterol/Ipratropium (Duoneb 3 Mg/0.5 Mg (3 Ml) Ud) 3 ml IH [id number] [facility] Last Admin: 07/25/18 13:34 Dose: 3 ml Albuterol/Ipratropium (Duoneb 3 Mg/0.5 Mg (3 Ml) Ud) 3 ml IH Q2H PRN PRN Reason: Shortness of Breath Aspirin (Aspirin Chewable) 81 mg PO DAILY [facility] Last Admin: 07/25/18 10:58 Dose: 81 mg Docusate Sodium (Colace) 100 mg PO BID [facility] Last Admin: 07/25/18 10:58 Dose: 100 mg Enoxaparin Sodium (Lovenox) 40 mg SC DAILY [facility]; Protocol Last Admin: 07/25/18 10:58 Dose: 40 mg Famotidine (Pepcid) 20 mg PO DAILY [facility] Last Admin: 07/25/18 10:58 Dose: 20 mg Furosemide (Lasix) 20 mg IVP Q12 [facility] Last Admin: 07/25/18 11:00 Dose: 20 mg Guaifenesin/Dextromethorphan (Robitussin Dm) 5 ml PO Q4H PRN PRN Reason: Cough Last Admin: 07/24/18 09:58 Dose: 5 ml Ceftriaxone Sodium (Rocephin 1 Gram Ivpb) 1 gm in 100 mls @ 100 mls/hr IVPB DAILY [facility]; Protocol Last Admin: 07/25/18 10:58 Dose: 100 mls/hr Azithromycin (Zithromax 500mg In Ns) 500 mg in 250 mls @ 167 mls/hr IVPB DAILY [facility]; Protocol Last Admin: 07/25/18 10:58 Dose: 167 mls/hr Levothyroxine Sodium (Synthroid) 50 mcg PO ACB [facility] Last Admin: 07/25/18 08:00 Dose: 50 mcg Magnesium Hydroxide (Milk Of Magnesia) 30 ml PO DAILY PRN PRN Reason: Constipation Last Admin: 07/25/18 12:53 Dose: 30 ml Oseltamivir Phosphate (Tamiflu Cap) 75 mg PO BID [facility]; Protocol Stop: 07/28/18 11:50 Last Admin: 07/25/18 10:58 Dose: 75 mg Polyethylene Glycol (Miralax) 17 gm PO BID [facility] - Labs Labs: 07/25/18 07:30 07/25/18 07:30 PT 13.9 SECONDS (9.4-12.5) H 07/22/18 23:50 INR 1.21 07/22/18 23:50 APTT 33.8 Seconds (25.1-36.5) 07/22/18 23:50 Attending/Attestation - Attestation I have personally seen and examined this patient.: Yes I have fully participated in the care of the patient.: Yes I have reviewed all pertinent clinical information, including history, physical exam and plan: Yes Notes (Text): Patient seen and examined by me with resident at 9:25AM on 07/24/18. Case i ncluding HPI, physical exam, and assessment and plan discussed with resident. Agree with above with following additions/corrections. Patient is an 87 year old male with past medical history significant for CHF with preserved EF, COPD, hypothyroidism, pneumonia, pulmonary hypertension, severe tricuspid regurgitation, and atrial fibrillation not on anticoagulation secondary to history of recurrent hematuria that presented to the emergency room with a chief complaint of shortness of breath. Patient states he is feeling ok. Feels his shortness of breath is ok. Patient states he does have a productive cough. He denies any chest pain or palpitations. No nausea, vomiting, or abdominal pain. No diarrhea or constipation. No fevers or chills. No dysuria. No headaches or dizziness. Physical exam: General: Awake and alert sitting up in bed in no acute distress HEENT: Normocephalic, atraumatic. Extraocular muscles intact, pupils equal and reactive, no scleral icterus. Oropharynx is pink moist. Neck is supple. Cardiovascular: Irregularly irregular rhythm. No murmurs, rubs, or gallops appreciated Pulmonary: Normal respiratory effort. Decreased breath sounds. No rhonchi, rales, or wheezing appreciated Gastrointestinal: Soft, nondistended. Nontender. Positive bowel sounds all 4 quadrants. No guarding. Musculoskeletal: Moves all extremities. No calf tenderness. Trace lower extremity edema Central nervous system: Awake and alert Dermatologic: Skin warm and dry. Chronic venous stasis color changes bilateral lower extremities. Assessment and plan: Patient is an 87 year old male with past medical history significant for CHF with preserved EF, COPD, hypothyroidism, pneumonia, pulmonar y hypertension, severe tricuspid regurgitation, and atrial fibrillation not on anticoagulation secondary to history of recurrent hematuria that presented to the emergency room with a chief complaint of shortness of breath. 1. Shortness of breath. Likely multifactorial secondary to community acquired pneumonia, pleural effusion, and acute on chronic diastolic CHF exacerbation. CTA chest per radiologist showed no evidence of acute PE, small to moderate size right pleural effusion, cardiomegaly, moderate pulmonary vascular congestion and scattered patchy groud-glass opacities, foci of airspace consolidation at the right middle and bilateral lower lobes, mildly enlarged bilateral nonspecific hilar lymph nodes. Cardiology following, recommendations appreciated. ID following, recommendations appreciated. Continue Rocephin and Zithromax. Continue robitussin as needed for cough. Leukocytosis improving. Paitent afebrile today. Blood cultures negative to date. Started on Tamiflu by ID. Proca lcitonin 0.30. Influenza negative. Continue Lasix 20mg IV q12hrs. 2d Echo per engine wiper showed bilateral enlargement, borderline concentric LVH, normal LV function, severe tricuspid regurgitation, and severe pulmonary hypertension 2. Chronic atrial fibrillation. Not on anticoagulation. Cardiology following, recommendations appreciated. Patient is rate controlled. 3. COPD. Severe pulmonary hypertension. Continue nebulizer treatments. 4. Hypothyroidism. Continue Synthroid 5. Constipation. Continue Colace 6. GI/DVT prophylaxis. Pepcid/Lovenox Case was discussed in detail with patient regarding current diagnosis and treatment plan. All questions answered.
[2018-07-24] MEDS ORDERED: POLYETHYLENE GLYCOL 3350 17 GM/Dose PACKET PO STA (20:02)
[2018-07-25] MEDS: Albuterol-Ipratrop 3 mg / 0.5 (3 ml) UD IH SCH ×4 (01:22→19:56)
[2018-07-25] MEDS: Levothyroxine 50 MCG TAB PO SCH (08:00)
[2018-07-25 08:12] LABS: GRAN # 6.45 (1.4-6.5); GRAN % 73.7 % (50.0-68.0); LYMPH # 1.4 (1.2-3.4); LYMPH % 16.2 % (22.0-35.0); MEAN CELL VOLUME 89.2 fl (80.0-105.0); MEAN CORPUSCULAR HEMOGLOBIN 28.4 pg (25.0-35.0); MEAN CORPUSCULAR HGB CONC 31.8 g/dl (31.0-37.0); MEAN PLATELET VOLUME 10.4 fl (7.0-11.0); MONO # 0.9 (0.1-0.6); MONO % 10.1 % (1.0-6.0); RBC 3.52 10^6/uL (3.5-6.1); RED CELL DISTRIBUTION WIDTH 15.3 % (11.5-14.5); WHITE BLOOD COUNT 8.8 10^3/uL (4.5-11.0)
[2018-07-25 08:55] LABS: ALB/GLOB RATIO 1.1 (1.1-1.8); ALBUMIN 3.8 g/dL (3.0-4.8); CALCIUM 8.2 mg/dL (8.4-10.5)
--- NOTE | 2018-07-25 10:23 | PN ---
DATE: 07/25/2018 SUBJECTIVE: The patient is seen lying in bed on telemetry. He continues to have a persistent cough. He is afebrile. His current medications include aspirin, DuoNeb inhaler, Lasix 20 mg IV every 12 hours, Lovenox, Pepcid, Rocephin, Synthroid, Tamiflu, and Zithromax. PHYSICAL EXAMINATION: GENERAL: He is a very elderly man who appears comfortable at rest. VITAL SIGNS: Blood pressure is 120/56 with pulse of 90 in atrial fibrillation, respirations are 16. He is afebrile. HEENT: No JVD. CHEST: Bilateral scattered rhonchi with crackles noted at the right base. HEART: PMI displaced laterally with systolic murmur noted at the lower left sternal border. ABDOMEN: Soft and nontender with bowel sounds. EXTREMITIES: No edema. LABORATORY DATA: Potassium 3.7, BUN and creatinine 31 and 1.4. Hemoglobin and hematocrit 10 and 31.4 with platelet count 153,000. IMPRESSION: 1. Community-acquired pneumonia, on antibiotics. 2. Severe chronic obstructive pulmonary disease. 3. Severe pulmonary hypertension. 4. Chronic atrial fibrillation, remains off anticoagulation due to the severe hematuria in the past. RECOMMENDATIONS: Current management should continue at the present time. Antibiotic therapy will continue. Conservative cardiac management is advised. Anticoagulation will continue to be withheld given his prior history. He is not currently on rate-control therapy and likely has some intrinsic AV node disease given his normal heart rate in the setting of underlying atrial fibrillation. We will continue to follow and make further recommendations as appropriate. Silvio Martinez MD MTDD
[2018-07-25] MEDS: Enoxaparin 40 mg Syringe SC SCH (10:58)
[2018-07-25] MEDS: cefTRIAXone 1 gm 1 GM/100 ML BAG IVPB SCH (10:58)
[2018-07-25] MEDS: Azithromycin 500MG/NS 250ml 500 MG/250 ML BAG IVPB SCH (10:58)
[2018-07-25] MEDS ORDERED: Magnesium Hydroxide Susp 30 ml UD PO PRN (12:41)
[2018-07-25] MEDS ORDERED: Magnesium Citrate Oral SOL (300 ml) PO ONE (14:00)
--- NOTE | 2018-07-25 14:33 | CP.PCM.PN ---
Subjective - Date & Time of Evaluation Date of Evaluation: 07/25/18 Time of Evaluation: 09:20 - Subjective Subjective: Medicine Progress Note for Hospitalist Service, Dr. Nicole Jaime, DO PGY-1 Pt seen and examined at bedside. AAOx1, no acute distress. Unable to obtain further ROS due to pt's current mental status. No acute events reported overnight by staff. Objective - Vital Signs/Intake and Output Vital Signs (last 24 hours): Temp Pulse Resp BP Pulse Ox 97.4 F L 74 18 113/70 95 07/25/18 12:00 07/25/18 14:00 07/25/18 12:00 07/25/18 12:00 07/25/18 06:00 Intake and Output: 07/25/18 07/25/18 06:59 18:59 Intake Total 660 Output Total 780 Balance -120 - Medications Medications: Current Medications Acetaminophen (Tylenol 325mg Tab) 650 mg PO Q6H PRN PRN Reason: Fever >100.4 F Albuterol/Ipratropium (Duoneb 3 Mg/0.5 Mg (3 Ml) Ud) 3 ml IH [id number] [facility] Last Admin: 07/25/18 13:34 Dose: 3 ml Albuterol/Ipratropium (Duoneb 3 Mg/0.5 Mg (3 Ml) Ud) 3 ml IH Q2H PRN PRN Reason: Shortness of Breath Aspirin (Aspirin Chewable) 81 mg PO DAILY [facility] Last Admin: 07/25/18 10:58 Dose: 81 mg Docusate Sodium (Colace) 100 mg PO BID [facility] Last Admin: 07/25/18 10:58 Dose: 100 mg Enoxaparin Sodium (Lovenox) 40 mg SC DAILY [facility]; Protocol Last Admin: 07/25/18 10:58 Dose: 40 mg Famotidine (Pepcid) 20 mg PO DAILY [facility] Last Admin: 07/25/18 10:58 Dose: 20 mg Furosemide (Lasix) 20 mg IVP Q12 [facility] Last Admin: 07/25/18 11:00 Dose: 20 mg Guaifenesin/Dextromethorphan (Robitussin Dm) 5 ml PO Q4H PRN PRN Reason: Cough Last Admin: 07/24/18 09:58 Dose: 5 ml Ceftriaxone Sodium (Rocephin 1 Gram Ivpb) 1 gm in 100 mls @ 100 mls/hr IVPB DAILY [facility]; Protocol Last Admin: 07/25/18 10:58 Dose: 100 mls/hr Azithromycin (Zithromax 500mg In Ns) 500 mg in 250 mls @ 167 mls/hr IVPB DAILY [facility]; Protocol Last Admin: 07/25/18 10:58 Dose: 167 mls/hr Levothyroxine Sodium (Synthroid) 50 mcg PO ACB [facility] Last Admin: 07/25/18 08:00 Dose: 50 mcg Magnesium Hydroxide (Milk Of Magnesia) 30 ml PO DAILY PRN PRN Reason: Constipation Last Admin: 07/25/18 12:53 Dose: 30 ml Oseltamivir Phosphate (Tamiflu Cap) 75 mg PO BID [facility]; Protocol Stop: 07/28/18 11:50 Last Admin: 07/25/18 10:58 Dose: 75 mg Polyethylene Glycol (Miralax) 17 gm PO BID [facility] - Labs Labs: 07/25/18 07:30 07/25/18 07:30 PT 13.9 SECONDS (9.4-12.5) H 07/22/18 23:50 INR 1.21 07/22/18 23:50 APTT 33.8 Seconds (25.1-36.5) 07/22/18 23:50 - Constitutional Appears: Non-toxic, No Acute Distress, Chronically Ill - Head Exam Head Exam: ATRAUMATIC, NORMOCEPHALIC - Eye Exam Eye Exam: EOMI, Normal appearance, PERRL - ENT Exam ENT Exam: Mucous Membranes Moist - Respiratory Exam Respiratory Exam: Rales, NORMAL BREATHING PATTERN. absent: Rhonchi, Wheezes - Cardiovascular Exam Cardiovascular Exam: +S1, +S2. absent: Gallop, Rubs, Murmur Additional comments: Irregularly irregular rhythm - GI/Abdominal Exam GI & Abdominal Exam: Soft, Normal Bowel Sounds. absent: Distended, Guarding, Tenderness, Organomegaly - Extremities Exam Extremities Exam: Normal Capillary Refill, Normal Inspection. absent: Pedal Edema, Tenderness - Neurological Exam Neurological Exam: Alert, Awake, CN II-XII Intact (Oriented x1) Assessment and Plan - Assessment and Plan (Free Text) Assessment: 87 year old male with PMHx of CHF with preserved EF in 2013, COPD, hypothyroidism, pneumonia, pulmonary hypertension, severe tricuspid regu rgitation and A-fib not on anticoagulation, presenting to the ED for one day history of SOB. Pt admitted for management of multifocal PNA. Plan: Pneumonia/Pleural Effusion -CTA 07/23: no evidence of acute PE, small to moderate sized R pleural effusion, cardiomegaly, moderate pulmonary vascular congestion and scattered patchy ground-glass opacities; foci of airspace consolidation at R middle and b/l lower lobes may represent PNA or aspiration versus less likely severe congestion and pulmonary edema; mildly enlarged b/l nonspecific hilar lymph nodes -Procal 0.3 -C/w Rocephin, Azithromycin day #2 -ESR elevated at 80; CRP > 15; SWATI level pending -Lactate WNL -Blood cxs no growth after 24 hrs -Legionella neg, influenza neg, strep pneumo pending -PT/OT -Fall precautions -Aspiration precautions -Chest PT Constipation -Per staff pt was not having BM for past 2 days, was c/o symptoms yesterday evening; pt is poor historian, does not remember last time he had BM -Exam soft, NTND, BSx4 in all quadrants -Colace 100 mg PO bid -S/p polyethylene glycol x1 -Will give 1 dose of Mag citrate, monitor bowel function, will cont to monitor and reassess Hx of Diastolic CHF -Per previous records, likely etiology from cor pulmonale with severe pulmonary hypertension -CXR 07/23: acute and presumed cardiogenic pulmonary edema -BNP elevated -Lasix 20 IV BID -Previous echo in 2013 showed normal LVEF, RVSP 92, moderate MR, severe TR -Echo 07/23: biatrial enlargement, borderline concentric LVH, normal LV systolic function, septal flattening consistent w/ RV pressure overload, mild MR, mild PI, Severe TR, severe pulm HTN -Troponins neg x3 -Cardiology consulted, Dr. Banda, recs appreciated Hx of chronic afib -Initial EKG showed afib at 100bpm, no ST changes -Chadsvasc score is 3 -Not on home anticoagulation -ASA 81mg daily -Cardiology consulted Hx of COPD -VBG does not show CO2 retention, unlikely COPD exacerbation -ABG wnl -C/w supplemental O2 as needed -Duonebs prn and ella Hx of Hypothyroidism -C/w synthroid 50 mcg daily -TSH 1.48 PPX/Diet -Lovenox and pepcid -HHD Dispo: pending TCU eval Pt seen, examined with, and plan discussed with Dr. Rivera, attending physician. Mane Jaime DO PGY-1, [employer] pager #[phone]
[2018-07-25] MEDS: POLYETHYLENE GLYCOL 3350 17 GM/Dose PACKET PO SCH (17:34)
--- NOTE | 2018-07-25 18:54 | CP.PCM.PN ---
Subjective - Date & Time of Evaluation Date of Evaluation: 07/25/18 Time of Evaluation: 09:35 - Subjective Subjective: Breathing a little better, cough is improving, has some constipation. No fevers. Objective - Vital Signs/Intake and Output Vital Signs (last 24 hours): Temp Pulse Resp BP Pulse Ox 98.2 F 65 18 131/61 97 07/24/18 06:00 07/24/18 05:37 07/24/18 00:01 07/24/18 10:03 07/23/18 11:51 Intake and Output: 07/24/18 07/24/18 06:59 18:59 Intake Total 920 Output Total 1400 Balance -480 - Medications Medications: Current Medications Acetaminophen (Tylenol 325mg Tab) 650 mg PO Q6H PRN PRN Reason: Fever >100.4 F Albuterol/Ipratropium (Duoneb 3 Mg/0.5 Mg (3 Ml) Ud) 3 ml IH [id number] [facility] Last Admin: 07/24/18 08:00 Dose: 3 ml Albuterol/Ipratropium (Duoneb 3 Mg/0.5 Mg (3 Ml) Ud) 3 ml IH Q2H PRN PRN Reason: Shortness of Breath Aspirin (Aspirin Chewable) 81 mg PO DAILY [facility] Last Admin: 07/24/18 10:03 Dose: 81 mg Enoxaparin Sodium (Lovenox) 40 mg SC DAILY [facility]; Protocol Last Admin: 07/24/18 10:03 Dose: 40 mg Famotidine (Pepcid) 20 mg PO DAILY [facility] Last Admin: 07/24/18 10:03 Dose: 20 mg Furosemide (Lasix) 20 mg IVP Q12 [facility] Last Admin: 07/24/18 10:03 Dose: 20 mg Guaifenesin/Dextromethorphan (Robitussin Dm) 5 ml PO Q4H PRN PRN Reason: Cough Last Admin: 07/24/18 09:58 Dose: 5 ml Ceftriaxone Sodium (Rocephin 1 Gram Ivpb) 1 gm in 100 mls @ 100 mls/hr IVPB DAILY [facility]; Protocol Last Admin: 07/24/18 09:58 Dose: 100 mls/hr Azithromycin (Zithromax 500mg In Ns) 500 mg in 250 mls @ 167 mls/hr IVPB DAILY [facility]; Protocol Last Admin: 07/24/18 09:59 Dose: 167 mls/hr Levothyroxine Sodium (Synthroid) 50 mcg PO ACB [facility] Last Admin: 07/24/18 10:03 Dose: 50 mcg Oseltamivir Phosphate (Tamiflu Cap) 75 mg PO BID [facility]; Protocol Stop: 07/28/18 11:50 Last Admin: 07/24/18 10:03 Dose: 75 mg - Labs Labs: 07/24/18 07:30 07/24/18 07:30 PT 13.9 SECONDS (9.4-12.5) H 07/22/18 23:50 INR 1.21 07/22/18 23:50 APTT 33.8 Seconds (25.1-36.5) 07/22/18 23:50 - Constitutional Appears: Chronically Ill - Head Exam Head Exam: NORMAL INSPECTION - Respiratory Exam Respiratory Exam: Decreased Breath Sounds - Cardiovascular Exam Cardiovascular Exam: +S1, +S2 - GI/Abdominal Exam GI & Abdominal Exam: Soft. absent: Tenderness Assessment and Plan - Assessment and Plan (Free Text) Plan: Assessment probable CAP on top of acute on chronic CHF chronic CHF COPD pulmonary HTN atrial fibrillation hypothyroidism Plan continue Rocephin and Zithomax day 3; follow up final blood, sputum cx results reviewed CT chest PCT is 0.3 but CRP is elevated will continue to monitor clinically
[2018-07-26] MEDS: Albuterol-Ipratrop 3 mg / 0.5 (3 ml) UD IH SCH ×4 (01:34→19:55)
[2018-07-26 07:38] LABS: EOS % 0.3 % (1.5-5.0); GRAN # 4.46 (1.4-6.5); GRAN % 65.4 % (50.0-68.0); HEMOGLOBIN 10.1 g/dL (14.0-18.0); LYMPH # 1.4 (1.2-3.4); LYMPH % 20.1 % (22.0-35.0); MEAN CELL VOLUME 89.5 fl (80.0-105.0); MEAN CORPUSCULAR HEMOGLOBIN 28.8 pg (25.0-35.0); MEAN CORPUSCULAR HGB CONC 32.2 g/dl (31.0-37.0); MEAN PLATELET VOLUME 10.8 fl (7.0-11.0); MONO % 14.2 % (1.0-6.0); RBC 3.51 10^6/uL (3.5-6.1); RED CELL DISTRIBUTION WIDTH 15.1 % (11.5-14.5); WHITE BLOOD COUNT 6.8 10^3/uL (4.5-11.0)
[2018-07-26 07:50] LABS: ALB/GLOB RATIO 1.1 (1.1-1.8); ALBUMIN 3.7 g/dL (3.0-4.8); ALT/SGPT 27 U/L (7-56); AST/SGOT 26 U/L (17-59); BLOOD UREA NITROGEN 20 mg/dL (7-21); CALCIUM 8.3 mg/dL (8.4-10.5); GFR NON-AFRICAN AMERICAN > 60
--- NOTE | 2018-07-26 07:50 | RAD ---
Date of service: 07/26/2018 HISTORY: pleural effusion COMPARISON: Portable chest 07/23/2018. FINDINGS: LUNGS: Patient remains slightly rotated to the right. Diminished pulmonary vascular congestion is noted with cardiac size stable. Patchy density at the mid to inferior right lung zone is identified suspicious for developing infiltrate. No left-sided sided infiltrate. No pleural effusion or pneumothorax bilaterally. PLEURA: As above CARDIOVASCULAR: Calcific atherosclerotic changes are seen related to the thoracic aorta. As above as well. OSSEOUS STRUCTURES: No significant abnormalities. VISUALIZED UPPER ABDOMEN: Normal. OTHER FINDINGS: None. IMPRESSION: Developing limited infiltrate mid to inferior right lung zone with remaining lung [place] clear. Diminishing pulmonary vascular congestion. Stable cardiac silhouette.
--- NOTE | 2018-07-26 08:01 | CP.PCM.PN ---
Subjective - Date & Time of Evaluation Date of Evaluation: 07/26/18 Time of Evaluation: 07:00 - Subjective Subjective: Stable on 2R. No CP or SOB. He feels better. Was OOB in room. V/S noted. AF PE: Lungs: rhonchi R>L Cor: irreg S1S2 Abd: soft Ext.: no edema Neuro.: alert I/O= 900/1280 Labs noted BC X2 NG at 3 days CXR today noted Objective - Vital Signs/Intake and Output Vital Signs (last 24 hours): Temp Pulse Resp BP Pulse Ox 97.4 F L 70 19 118/58 L 96 07/26/18 06:00 07/26/18 06:00 07/26/18 06:00 07/26/18 06:00 07/26/18 06:00 Intake and Output: 07/26/18 07/26/18 06:59 18:59 Intake Total 240 Output Total 500 Balance -260 - Medications Medications: Current Medications Acetaminophen (Tylenol 325mg Tab) 650 mg PO Q6H PRN PRN Reason: Fever >100.4 F Albuterol/Ipratropium (Duoneb 3 Mg/0.5 Mg (3 Ml) Ud) [id number] [facility] Last Admin: 07/26/18 01:34 Dose: 3 ml Albuterol/Ipratropium (Duoneb 3 Mg/0.5 Mg (3 Ml) Ud) 3 ml IH Q2H PRN PRN Reason: Shortness of Breath Aspirin (Aspirin Chewable) [address] [facility] Last Admin: 07/25/18 10:58 Dose: 81 mg Docusate Sodium (Colace) [address] [facility] Last Admin: 07/25/18 17:33 Dose: 100 mg Enoxaparin Sodium (Lovenox) [address] [facility]; Protocol Last Admin: 07/25/18 10:58 Dose: 40 mg Famotidine (Pepcid) [address] [facility] Last Admin: 07/25/18 10:58 Dose: 20 mg Furosemide (Lasix) 20 mg IVP Q12 [facility] Last Admin: 07/25/18 21:03 Dose: 20 mg Guaifenesin/Dextromethorphan (Robitussin Dm) 5 ml PO Q4H PRN PRN Reason: Cough Last Admin: 07/24/18 09:58 Dose: 5 ml Ceftriaxone Sodium (Rocephin 1 Gram Ivpb) 1 gm in 100 mls @ 100 mls/hr IVPB DAILY [facility]; Protocol Last Admin: 07/25/18 10:58 Dose: 100 mls/hr Azithromycin (Zithromax 500mg In Ns) 500 mg in 250 mls @ 167 mls/hr IVPB DAILY [facility]; Protocol Last Admin: 07/25/18 10:58 Dose: 167 mls/hr Levothyroxine Sodium (Synthroid) 50 mcg PO ACB [facility] Last Admin: 07/25/18 08:00 Dose: 50 mcg Magnesium Hydroxide (Milk Of Magnesia) 30 ml PO DAILY PRN PRN Reason: Constipation Last Admin: 07/25/18 12:53 Dose: 30 ml Oseltamivir Phosphate (Tamiflu Cap) 75 mg PO BID [facility]; Protocol Stop: 07/28/18 11:50 Last Admin: 07/25/18 17:33 Dose: 75 mg Polyethylene Glycol (Miralax) 17 gm PO BID [facility] Last Admin: 07/25/18 17:34 Dose: 17 gm - Labs Labs: 07/26/18 07:00 07/26/18 07:00 PT 13.9 SECONDS (9.4-12.5) H 07/22/18 23:50 INR 1.21 07/22/18 23:50 APTT 33.8 Seconds (25.1-36.5) 07/22/18 23:50 Assessment and Plan - Assessment and Plan (Free Text) Assessment: Dyspnea Pneumonia COPD/Cor Pulmonale: Severe PH and TR with moderate MR on echo AF, no A/C due to hematuria HBP BPH Hypothyroidism Anemia Plan: AB Pulm Tx. IV lasix OOB as jessa Monitor: BMP, I/O, sats., etc
[2018-07-26] MEDS: cefTRIAXone 1 gm 1 GM/100 ML BAG IVPB SCH (10:06)
[2018-07-26] MEDS: Enoxaparin 40 mg Syringe SC SCH (10:07)
[2018-07-26] MEDS: Azithromycin 500MG/NS 250ml 500 MG/250 ML BAG IVPB SCH (10:07)
[2018-07-26] MEDS: POLYETHYLENE GLYCOL 3350 17 GM/Dose PACKET PO SCH ×2 (10:07→17:59)
[2018-07-26] MEDS: Levothyroxine 50 MCG TAB PO SCH (10:10)
--- NOTE | 2018-07-26 13:34 | CP.PCM.APN ---
Subjective - Date & Time of Evaluation Date of Evaluation: 07/26/18 Time of Evaluation: 09:30 - Subjective Subjective: 87 y/o male, pmh including copd/chf/pneumonia/pulmonary htn/Severe TR mild to moderate MR, atrial fibrillation nkda, c/o cough/shortness of breath on exertion started about 12 hours prior to ED arrival , hypoxic room air @ 89 percent when off oxygen, admitted with CHF, pleural effusion, pneumonia, currently undergoing work up. Pt. seen and examined in bed. Appeared comfortable, in no acute distress, states no BM in 4 days, denied s hortness of breath, denied chest pain, denied weakness. Review of Systems - Constitutional Constitutional: As Per HPI - EENT Eyes: As Per HPI Ears: As Per HPI - Cardiovascular Cardiovascular: As Per HPI - Respiratory Respiratory: As Per HPI - Gastrointestinal Gastrointestinal: As Per HPI - Genitourinary Genitourinary: As Per HPI - Musculoskeletal Musculoskeletal: As Per HPI - Neurological Neurological: As Per HPI Objective - Vital Signs/Intake and Output Vital Signs (last 24 hours): Temp Pulse Resp BP Pulse Ox 97.4 F L 70 19 145/89 96 07/26/18 06:00 07/26/18 06:00 07/26/18 06:00 07/26/18 10:08 07/26/18 06:00 Intake and Output: 07/26/18 07/26/18 06:59 18:59 Intake Total 240 Output Total 500 Balance -260 - Medications Medications: Current Medications Acetaminophen (Tylenol 325mg Tab) 650 mg PO Q6H PRN PRN Reason: Fever >100.4 F Albuterol/Ipratropium (Duoneb 3 Mg/0.5 Mg (3 Ml) Ud) 3 ml IH [id number] [facility] Last Admin: 07/26/18 07:58 Dose: 3 ml Albuterol/Ipratropium (Duoneb 3 Mg/0.5 Mg (3 Ml) Ud) 3 ml IH Q2H PRN PRN Reason: Shortness of Breath Aspirin (Aspirin Chewable) 81 mg PO DAILY [facility] Last Admin: 07/26/18 10:08 Dose: 81 mg Azithromycin (Zithromax) 500 mg PO DAILY [facility] Docusate Sodium (Colace) 100 mg PO BID [facility] Last Admin: 07/26/18 10:08 Dose: 100 mg Enoxaparin Sodium (Lovenox) 40 mg SC DAILY [facility]; Protocol Last Admin: 07/26/18 10:07 Dose: 40 mg Famotidine (Pepcid) 20 mg PO DAILY [facility] Last Admin: 07/26/18 10:08 Dose: 20 mg Furosemide (Lasix) 20 mg IVP Q12 [facility] Last Admin: 07/26/18 10:08 Dose: 20 mg Guaifenesin/Dextromethorphan (Robitussin Dm) 5 ml PO Q4H PRN PRN Reason: Cough Last Admin: 07/24/18 09:58 Dose: 5 ml Ceftriaxone Sodium (Rocephin 1 Gram Ivpb) 1 gm in 100 mls @ 100 mls/hr IVPB DAILY [facility]; Protocol Last Admin: 07/26/18 10:06 Dose: 100 mls/hr Levothyroxine Sodium (Synthroid) 50 mcg PO ACB [facility] Last Admin: 07/26/18 10:10 Dose: 50 mcg Magnesium Hydroxide (Milk Of Magnesia) 30 ml PO DAILY PRN PRN Reason: Constipation Last Admin: 07/25/18 12:53 Dose: 30 ml Polyethylene Glycol (Miralax) 17 gm PO BID [facility] Last Admin: 07/26/18 10:07 Dose: 17 gm - Labs Labs: 07/26/18 07:00 07/26/18 07:00 PT 13.9 SECONDS (9.4-12.5) H 07/22/18 23:50 INR 1.21 07/22/18 23:50 APTT 33.8 Seconds (25.1-36.5) 07/22/18 23:50 - Constitutional Appears: Well - Head Exam Head Exam: NORMAL INSPECTION - Eye Exam Eye Exam: Normal appearance - ENT Exam ENT Exam: Mucous Membranes Moist - Neck Exam Neck Exam: Full ROM - Respiratory Exam Respiratory Exam: NORMAL BREATHING PATTERN - Cardiovascular Exam Cardiovascular Exam: REGULAR RHYTHM, +S1, +S2 - GI/Abdominal Exam GI & Abdominal Exam: Distended - Rectal Exam Rectal Exam: Deferred - Extremities Exam Extremities Exam: Normal Inspection - Back Exam Back Exam: NORMAL INSPECTION - Neurological Exam Neurological Exam: Alert, Awake, Oriented x3 Assessment and Plan - Assessment and Plan (Free Text) Assessment: Assessment / Plan of Care: 1. CHF- continue Lasix as per cardiology, and monitor I's and O's, daily weights, echo result pending. 2. Multifocal pneumonia- Continue IV Rocephin/Zithromax as per I.D., will need 3 more days of IV antibiotics, today day #3 of Rocephin/ Zithromax. Results of blood cx are negative after 3 days. Urine cx are pending. Procal resulted 0.30. 3. Leukocytosis secondary to pneumonia. Will trend WBC, Cbc. PT has evaluated and recommended TCU rehab for patient. Will continue to monitor closely and follow clinical status. Anticipate dC to TCU for continued IV antibiotics and rehab, if patient / agree.
--- NOTE | 2018-07-26 14:01 | CP.PCM.PN ---
Subjective - Date & Time of Evaluation Date of Evaluation: 07/26/18 Time of Evaluation: 10:50 - Subjective Subjective: Feeling better, breathing better, constipation is resolved. Objective - Vital Signs/Intake and Output Vital Signs (last 24 hours): Temp Pulse Resp BP Pulse Ox 97.4 F L 74 18 113/70 95 07/25/18 12:00 07/25/18 14:00 07/25/18 12:00 07/25/18 12:00 07/25/18 06:00 Intake and Output: 07/25/18 07/25/18 06:59 18:59 Intake Total 660 Output Total 780 Balance -120 - Medications Medications: Current Medications Acetaminophen (Tylenol 325mg Tab) 650 mg PO Q6H PRN PRN Reason: Fever >100.4 F Albuterol/Ipratropium (Duoneb 3 Mg/0.5 Mg (3 Ml) Ud) 3 ml IH [id number] [facility] Last Admin: 07/25/18 13:34 Dose: 3 ml Albuterol/Ipratropium (Duoneb 3 Mg/0.5 Mg (3 Ml) Ud) 3 ml IH Q2H PRN PRN Reason: Shortness of Breath Aspirin (Aspirin Chewable) 81 mg PO DAILY [facility] Last Admin: 07/25/18 10:58 Dose: 81 mg Docusate Sodium (Colace) 100 mg PO BID [facility] Last Admin: 07/25/18 17:33 Dose: 100 mg Enoxaparin Sodium (Lovenox) 40 mg SC DAILY [facility]; Protocol Last Admin: 07/25/18 10:58 Dose: 40 mg Famotidine (Pepcid) 20 mg PO DAILY [facility] Last Admin: 07/25/18 10:58 Dose: 20 mg Furosemide (Lasix) 20 mg IVP Q12 [facility] Last Admin: 07/25/18 11:00 Dose: 20 mg Guaifenesin/Dextromethorphan (Robitussin Dm) 5 ml PO Q4H PRN PRN Reason: Cough Last Admin: 07/24/18 09:58 Dose: 5 ml Ceftriaxone Sodium (Rocephin 1 Gram Ivpb) 1 gm in 100 mls @ 100 mls/hr IVPB DAILY [facility]; Protocol Last Admin: 07/25/18 10:58 Dose: 100 mls/hr Azithromycin (Zithromax 500mg In Ns) 500 mg in 250 mls @ 167 mls/hr IVPB DAILY [facility]; Protocol Last Admin: 07/25/18 10:58 Dose: 167 mls/hr Levothyroxine Sodium (Synthroid) 50 mcg PO ACB [facility] Last Admin: 07/25/18 08:00 Dose: 50 mcg Magnesium Hydroxide (Milk Of Magnesia) 30 ml PO DAILY PRN PRN Reason: Constipation Last Admin: 07/25/18 12:53 Dose: 30 ml Oseltamivir Phosphate (Tamiflu Cap) 75 mg PO BID [facility]; Protocol Stop: 07/28/18 11:50 Last Admin: 07/25/18 17:33 Dose: 75 mg Polyethylene Glycol (Miralax) 17 gm PO BID [facility] Last Admin: 07/25/18 17:34 Dose: 17 gm - Labs Labs: 07/25/18 07:30 07/25/18 07:30 PT 13.9 SECONDS (9.4-12.5) H 07/22/18 23:50 INR 1.21 07/22/18 23:50 APTT 33.8 Seconds (25.1-36.5) 07/22/18 23:50 - Constitutional Appears: Chronically Ill - Head Exam Head Exam: NORMAL INSPECTION - Respiratory Exam Respiratory Exam: Decreased Breath Sounds - Cardiovascular Exam Cardiovascular Exam: +S1, +S2 - GI/Abdominal Exam GI & Abdominal Exam: Soft. absent: Tenderness Assessment and Plan - Assessment and Plan (Free Text) Plan: Assessment probable CAP on top of acute on chronic CHF chronic CHF COPD pulmonary HTN atrial fibrillation hypothyroidism Plan continue Rocephin and Zithomax day 4; cultures have been negative reviewed CT chest PCT is 0.3 but CRP is elevated will continue to monitor clinically
--- NOTE | 2018-07-26 15:05 | CP.PCM.PN ---
<Mane Jaime - Last Filed: 07/26/18 15:09> Subjective - Date & Time of Evaluation Date of Evaluation: 07/26/18 Time of Evaluation: 07:15 - Subjective Subjective: Medicine Progress Note for Hospitalist Service, Dr. Gini Jaime, DO PGY-1 Pt seen and examined at bedside this am. Denies any acute complaints, stated he had bowel movement overnight. Denies any abdominal pain currently. No acute events reported overnight by staff. 12-point ROS unobtainable due to pt's current mental status. Objective - Vital Signs/Intake and Output Vital Signs (last 24 hours): Temp Pulse Resp BP Pulse Ox 98.4 F 79 18 123/72 96 07/26/18 12:00 07/26/18 12:00 07/26/18 12:00 07/26/18 12:00 07/26/18 06:00 Intake and Output: 07/26/18 07/26/18 06:59 18:59 Intake Total 240 Output Total 500 Balance -260 - Medications Medications: Current Medications Acetaminophen (Tylenol 325mg Tab) 650 mg PO Q6H PRN PRN Reason: Fever >100.4 F Albuterol/Ipratropium (Duoneb 3 Mg/0.5 Mg (3 Ml) Ud) 3 ml IH [id number] [facility] Last Admin: 07/26/18 13:47 Dose: 3 ml Albuterol/Ipratropium (Duoneb 3 Mg/0.5 Mg (3 Ml) Ud) 3 ml IH Q2H PRN PRN Reason: Shortness of Breath Aspirin (Aspirin Chewable) 81 mg PO DAILY [facility] Last Admin: 07/26/18 10:08 Dose: 81 mg Azithromycin (Zithromax) 500 mg PO DAILY [facility] Docusate Sodium (Colace) 100 mg PO BID [facility] Last Admin: 07/26/18 10:08 Dose: 100 mg Enoxaparin Sodium (Lovenox) 40 mg SC DAILY [facility]; Protocol Last Admin: 07/26/18 10:07 Dose: 40 mg Famotidine (Pepcid) 20 mg PO DAILY [facility] Last Admin: 07/26/18 10:08 Dose: 20 mg Furosemide (Lasix) 20 mg IVP Q12 [facility] Last Admin: 07/26/18 10:08 Dose: 20 mg Guaifenesin/Dextromethorphan (Robitussin Dm) 5 ml PO Q4H PRN PRN Reason: Cough Last Admin: 07/24/18 09:58 Dose: 5 ml Ceftriaxone Sodium (Rocephin 1 Gram Ivpb) 1 gm in 100 mls @ 100 mls/hr IVPB DAILY [facility]; Protocol Last Admin: 07/26/18 10:06 Dose: 100 mls/hr Levothyroxine Sodium (Synthroid) 50 mcg PO ACB [facility] Last Admin: 07/26/18 10:10 Dose: 50 mcg Magnesium Hydroxide (Milk Of Magnesia) 30 ml PO DAILY PRN PRN Reason: Constipation Last Admin: 07/25/18 12:53 Dose: 30 ml Polyethylene Glycol (Miralax) 17 gm PO BID [facility] Last Admin: 07/26/18 10:07 Dose: 17 gm - Labs Labs: 07/26/18 07:00 07/26/18 07:00 PT 13.9 SECONDS (9.4-12.5) H 07/22/18 23:50 INR 1.21 07/22/18 23:50 APTT 33.8 Seconds (25.1-36.5) 07/22/18 23:50 - Constitutional Appears: Non-toxic, No Acute Distress - Eye Exam Eye Exam: EOMI, Normal appearance, PERRL - ENT Exam ENT Exam: Mucous Membranes Moist - Respiratory Exam Respiratory Exam: Rales, NORMAL BREATHING PATTERN. absent: Rhonchi, Wheezes Additional comments: heard in R lower lung base - Cardiovascular Exam Cardiovascular Exam: REGULAR RHYTHM, +S1, +S2. absent: Gallop, Rubs, Murmur - GI/Abdominal Exam GI & Abdominal Exam: Soft, Normal Bowel Sounds. absent: Distended, Guarding, Tenderness, Organomegaly - Extremities Exam Extremities Exam: Normal Capillary Refill, Normal Inspection. absent: Calf Tenderness, Pedal Edema - Neurological Exam Neurological Exam: Alert, Awake, CN II-XII Intact Additional comments: AAOx2 - Skin Skin Exam: Dry, Intact, Normal Color, Warm Assessment and Plan - Assessment and Plan (Free Text) Assessment: 87 year old male with PMHx of CHF with preserved EF in 2013, COPD, hypothyroidism, pneumonia, pulmonary hypertension, severe tricuspid regurgitation and A-fib not on anticoagulation, presenting to the ED for one day history of SOB. Pt admitted for management of multifocal PNA. Plan: Pneumonia/Pleural Effusion -CTA 07/23: no evidence of acute PE, small to moderate sized R pleural effusion, cardiomegaly, moderate pulmonary vascular congestion and scattered patchy ground-glass opacities; foci of airspace consolidation at R middle and b/l lower lobes may represent PNA or aspiration versus less likely severe congestion and pulmonary edema; mildly enlarged b/l nonspecific hilar lymph nodes -Procal 0.3 -C/w Rocephin, Azithromycin day #4 -ESR elevated at 80; CRP > 15; SWATI level wnl -Lactate WNL -Blood cxs no growth after 3 days -Legionella neg, influenza neg, strep pneumo neg; currently on Tamiflu day #2 as per ID, droplet precautions d/c'd -PT/OT -Fall precautions -Aspiration precautions -Chest PT Constipation: resolved, pt had BM overnight -Exam soft, NTND, BSx4 in all quadrants -Colace 100 mg PO bid -S/p polyethylene glycol x1 -S/p Mag citrate x1 Hx of Diastolic CHF -Per previous records, likely etiology from cor pulmonale with severe pulmonary hypertension -CXR 07/23: acute and presumed cardiogenic pulmonary edema -BNP elevated -Lasix 20 IV BID -Previous echo in 2013 showed normal LVEF, RVSP 92, moderate MR, severe TR -Echo 07/23: biatrial enlargement, borderline concentric LVH, normal LV systolic function, septal flattening consistent w/ RV pressure overload, mild MR, mild PI, Severe TR, severe pulm HTN -Troponins neg x3 -Cardiology consulted, Dr. Banda, recs appreciated Hx of chronic afib -Initial EKG showed afib at 100bpm, no ST changes -Chadsvasc score is 3 -Not on home anticoagulation -ASA 81mg daily -Cardiology consulted Hx of COPD -VBG does not show CO2 retention, unlikely COPD exacerbation -ABG wnl -C/w supplemental O2 as needed -Duonebs prn and ella Hx of Hypothyroidism -C/w synthroid 50 mcg daily -TSH 1.48 PPX/Diet -Lovenox and pepcid -HHD Dispo: pending TCU eval Pt seen, examined with, and plan discussed with Dr. Robert, attending physician. Mane Jaime, PGY-1, [employer] Pager #[phone] <Gini Robert R - Last Filed: 07/26/18 16:18> Objective - Vital Signs/Intake and Output Vital Signs (last 24 hours): Temp Pulse Resp BP Pulse Ox 98.4 F 79 18 123/72 96 07/26/18 12:00 07/26/18 12:00 07/26/18 12:00 07/26/18 12:00 07/26/18 06:00 Intake and Output: 07/26/18 07/26/18 06:59 18:59 Intake Total 240 Output Total 500 Balance -260 - Medications Medications: Current Medications Acetaminophen (Tylenol 325mg Tab) 650 mg PO Q6H PRN PRN Reason: Fever >100.4 F Albuterol/Ipratropium (Duoneb 3 Mg/0.5 Mg (3 Ml) Ud) 3 ml IH [id number] [facility] Last Admin: 07/26/18 13:47 Dose: 3 ml Albuterol/Ipratropium (Duoneb 3 Mg/0.5 Mg (3 Ml) Ud) 3 ml IH Q2H PRN PRN Reason: Shortness of Breath Aspirin (Aspirin Chewable) 81 mg PO DAILY [facility] Last Admin: 07/26/18 10:08 Dose: 81 mg Azithromycin (Zithromax) 500 mg PO DAILY [facility] Docusate Sodium (Colace) 100 mg PO BID [facility] Last Admin: 07/26/18 10:08 Dose: 100 mg Enoxaparin Sodium (Lovenox) 40 mg SC DAILY [facility]; Protocol Last Admin: 07/26/18 10:07 Dose: 40 mg Famotidine (Pepcid) 20 mg PO DAILY [facility] Last Admin: 07/26/18 10:08 Dose: 20 mg Furosemide (Lasix) 20 mg IVP Q12 [facility] Last Admin: 07/26/18 10:08 Dose: 20 mg Guaifenesin/Dextromethorphan (Robitussin Dm) 5 ml PO Q4H PRN PRN Reason: Cough Last Admin: 07/24/18 09:58 Dose: 5 ml Ceftriaxone Sodium (Rocephin 1 Gram Ivpb) 1 gm in 100 mls @ 100 mls/hr IVPB DAILY [facility]; Protocol Last Admin: 07/26/18 10:06 Dose: 100 mls/hr Levothyroxine Sodium (Synthroid) 50 mcg PO ACB [facility] Last Admin: 07/26/18 10:10 Dose: 50 mcg Magnesium Hydroxide (Milk Of Magnesia) 30 ml PO DAILY PRN PRN Reason: Constipation Last Admin: 07/25/18 12:53 Dose: 30 ml Polyethylene Glycol (Miralax) 17 gm PO BID [facility] Last Admin: 07/26/18 10:07 Dose: 17 gm - Labs Labs: 07/26/18 07:00 07/26/18 07:00 PT 13.9 SECONDS (9.4-12.5) H 07/22/18 23:50 INR 1.21 07/22/18 23:50 APTT 33.8 Seconds (25.1-36.5) 07/22/18 23:50 Attending/Attestation - Attestation I have personally seen and examined this patient.: Yes I have fully participated in the care of the patient.: Yes I have reviewed all pertinent clinical information, including history, physical exam and plan: Yes Notes (Text): Patient seen and examined by me with resident at 9:30AM on 07/26/18. Case including HPI, physical exam, and assessment and plan discussed with resident. Agree with above with following additions/corrections. Patient is an 87 year old male with past medical history significant for CHF with preserved EF, COPD, hypothyroidism, pneumonia, pulmonary hypertension, severe tricuspid regurgitation, and atrial fibrillation not on anticoagulation secondary to history of recurrent hematuria that presented to the emergency room with a chief complaint of shortness of breath. Patient states he is feeling better today. Feels his shortness of breath has improved. Also feels his cough has improved. No chest pain or palpitations. No nausea, vomiting, or abdominal pain. No fevers or chills. No dysuria. No headaches or dizziness. Patient has bowel movement last night. Physical exam: General: Awake and alert sitting up in bed in no acute distress HEENT: Normocephalic, atraumatic. Extraocular muscles intact, pupils equal and reactive, no scleral icterus. Oropharynx is pink moist. Neck is supple. Cardiovascular: Irregularly irregular rhythm. No murmurs, rubs, or gallops appreciated Pulmonary: Normal respiratory effort. Improved breath sounds. No rhonchi, rales, or wheezing appreciated Gastrointestinal: Soft, nondistended. Nontender. Positive bowel sounds all 4 quadrants. No guarding. Musculoskeletal: Moves all extremities. No calf tenderness. No edema appreciated. Central nervous system: Awake and alert Dermatologic: Skin warm and dry. Chronic venous stasis color changes bilateral lower extremities. Assessment and plan: Patient is an 87 year old male with past medical history significant for CHF with preserved EF, COPD, hypothyroidism, pneumonia, pulmonary hypertension, severe tricuspid regurgitation, and atrial fibrillation not on anticoagulation secondary to history of recurrent hematuria that pr esented to the emergency room with a chief complaint of shortness of breath. 1. Shortness of breath. Likely multifactorial secondary to community acquired pneumonia, pleural effusion, and acute on chronic diastolic CHF exacerbation. ID following, recommendations appreciated. Continue Rocephin and Zithromax. Continue robitussin as needed for cough. Leukocytosis resolved. Paitent afebrile. Blood cultures negative to date. Continue Tamiflu per ID. Patient taken off droplet precautions today. Procalcitonin 0.30. Influenza negative. Continue Lasix 20mg IV q12hrs. CTA chest per radiologist showed no evidence of acute PE, small to moderate size right pleural effusion, cardiomegaly, moderate pulmonary vascular congestion and scattered patchy groud-glass opacities, foci of airspace consolidation at the right middle and bilateral lower lobes, mildly enlarged bilateral nonspecific hilar lymph nodes. Cardiology following, recommendations appreciated. 2d Echo per in house counsel showed bilateral enlargement, borderline concentric LVH, normal LV function, severe tricuspid regurgitation, and severe pulmonary hypertension 2. Chronic atrial fibrillation. Not on anticoagulation secondary to history of hematuria. Continue ASA. Cardiology following, recommendations appreciated. Patient is rate controlled. 3. COPD. Unlikely acute exacerbation. Severe pulmonary hypertension. Continue nebulizer treatments. 4. Hypothyroidism. Continue Synthroid 5. Constipation. Continue Colace and miralax. Patient had bowel movement last night. 6. GI/DVT prophylaxis. Pepcid/Lovenox Case was discussed in detail with patient regarding current diagnosis and treatment plan. All questions answered.
[2018-07-27] MEDS: Albuterol-Ipratrop 3 mg / 0.5 (3 ml) UD IH SCH ×3 (01:17→13:28)
[2018-07-27 07:57] LABS: EOS % 0.2 % (1.5-5.0); GRAN # 3.74 (1.4-6.5); GRAN % 63.3 % (50.0-68.0); HEMOGLOBIN 9.9 g/dL (14.0-18.0); LYMPH # 1.1 (1.2-3.4); LYMPH % 19.2 % (22.0-35.0); MEAN CELL VOLUME 88.8 fl (80.0-105.0); MEAN CORPUSCULAR HEMOGLOBIN 29.1 pg (25.0-35.0); MEAN CORPUSCULAR HGB CONC 32.8 g/dl (31.0-37.0); MEAN PLATELET VOLUME 10.3 fl (7.0-11.0); MONO % 17.3 % (1.0-6.0); RBC 3.4 10^6/uL (3.5-6.1); RED CELL DISTRIBUTION WIDTH 14.9 % (11.5-14.5); WHITE BLOOD COUNT 5.9 10^3/uL (4.5-11.0)
[2018-07-27 08:19] LABS: BLOOD UREA NITROGEN 17 mg/dL (7-21); CALCIUM 8.3 mg/dL (8.4-10.5); GFR NON-AFRICAN AMERICAN > 60
[2018-07-27 09:20] VITALS: PULSE 80; RESP 18; TEMP 98.8; O2SAT 95
[2018-07-27] MEDS: POLYETHYLENE GLYCOL 3350 17 GM/Dose PACKET PO SCH (10:04)
[2018-07-27] MEDS: cefTRIAXone 1 gm 1 GM/100 ML BAG IVPB SCH (10:04)
[2018-07-27] MEDS: Enoxaparin 40 mg Syringe SC SCH (10:05)
[2018-07-27] MEDS: Levothyroxine 50 MCG TAB PO SCH (10:10)
[2018-07-27 10:18] VITALS: BP 150/92
--- NOTE | 2018-07-27 12:08 | CP.PCM.PN ---
Objective - Vital Signs/Intake and Output Vital Signs (last 24 hours): Temp Pulse Resp BP Pulse Ox 98.8 F 80 18 150/92 H 95 07/27/18 06:00 07/27/18 06:00 07/27/18 06:00 07/27/18 10:06 07/27/18 06:00 Intake and Output: 07/27/18 07/27/18 06:59 18:59 Output Total 300 Balance -300 - Medications Medications: Current Medications Acetaminophen (Tylenol 325mg Tab) 650 mg PO Q6H PRN PRN Reason: Fever >100.4 F Albuterol/Ipratropium (Duoneb 3 Mg/0.5 Mg (3 Ml) Ud) 3 ml IH [id number] [facility] Last Admin: 07/27/18 07:43 Dose: 3 ml Albuterol/Ipratropium (Duoneb 3 Mg/0.5 Mg (3 Ml) Ud) 3 ml IH Q2H PRN PRN Reason: Shortness of Breath Aspirin (Aspirin Chewable) 81 mg PO DAILY [facility] Last Admin: 07/27/18 10:05 Dose: 81 mg Azithromycin (Zithromax) 500 mg PO DAILY [facility] Last Admin: 07/27/18 10:05 Dose: 500 mg Docusate Sodium (Colace) 100 mg PO BID [facility] Last Admin: 07/27/18 10:05 Dose: 100 mg Enoxaparin Sodium (Lovenox) 40 mg SC DAILY [facility]; Protocol Last Admin: 07/27/18 10:05 Dose: 40 mg Famotidine (Pepcid) 20 mg PO DAILY [facility] Last Admin: 07/27/18 10:05 Dose: 20 mg Furosemide (Lasix) 20 mg IVP Q12 [facility] Last Admin: 07/27/18 10:06 Dose: 20 mg Guaifenesin/Dextromethorphan (Robitussin Dm) 5 ml PO Q4H PRN PRN Reason: Cough Last Admin: 07/24/18 09:58 Dose: 5 ml Ceftriaxone Sodium (Rocephin 1 Gram Ivpb) 1 gm in 100 mls @ 100 mls/hr IVPB DAILY [facility]; Protocol Last Admin: 07/27/18 10:04 Dose: 100 mls/hr Levothyroxine Sodium (Synthroid) 50 mcg PO ACB [facility] Last Admin: 07/27/18 10:10 Dose: 50 mcg Magnesium Hydroxide (Milk Of Magnesia) 30 ml PO DAILY PRN PRN Reason: Constipation Last Admin: 07/25/18 12:53 Dose: 30 ml Polyethylene Glycol (Miralax) 17 gm PO BID [facility] Last Admin: 07/27/18 10:04 Dose: 17 gm - Labs Labs: 07/27/18 07:15 07/27/18 07:15 PT 13.9 SECONDS (9.4-12.5) H 07/22/18 23:50 INR 1.21 07/22/18 23:50 APTT 33.8 Seconds (25.1-36.5) 07/22/18 23:50
--- NOTE | 2018-07-27 13:28 | CP.PCM.PN ---
Subjective - Date & Time of Evaluation Date of Evaluation: 07/27/18 Time of Evaluation: 08:00 - Subjective Subjective: Feeling much better, breathing better, no fevers. Objective - Vital Signs/Intake and Output Vital Signs (last 24 hours): Temp Pulse Resp BP Pulse Ox 98.4 F 79 18 123/72 96 07/26/18 12:00 07/26/18 12:00 07/26/18 12:00 07/26/18 12:00 07/26/18 06:00 Intake and Output: 07/26/18 07/26/18 06:59 18:59 Intake Total 240 Output Total 500 Balance -260 - Medications Medications: Current Medications Acetaminophen (Tylenol 325mg Tab) 650 mg PO Q6H PRN PRN Reason: Fever >100.4 F Albuterol/Ipratropium (Duoneb 3 Mg/0.5 Mg (3 Ml) Ud) 3 ml IH [id number] [facility] Last Admin: 07/26/18 13:47 Dose: 3 ml Albuterol/Ipratropium (Duoneb 3 Mg/0.5 Mg (3 Ml) Ud) 3 ml IH Q2H PRN PRN Reason: Shortness of Breath Aspirin (Aspirin Chewable) 81 mg PO DAILY [facility] Last Admin: 07/26/18 10:08 Dose: 81 mg Azithromycin (Zithromax) 500 mg PO DAILY [facility] Docusate Sodium (Colace) 100 mg PO BID [facility] Last Admin: 07/26/18 10:08 Dose: 100 mg Enoxaparin Sodium (Lovenox) 40 mg SC DAILY [facility]; Protocol Last Admin: 07/26/18 10:07 Dose: 40 mg Famotidine (Pepcid) 20 mg PO DAILY [facility] Last Admin: 07/26/18 10:08 Dose: 20 mg Furosemide (Lasix) 20 mg IVP Q12 [facility] Last Admin: 07/26/18 10:08 Dose: 20 mg Guaifenesin/Dextromethorphan (Robitussin Dm) 5 ml PO Q4H PRN PRN Reason: Cough Last Admin: 07/24/18 09:58 Dose: 5 ml Ceftriaxone Sodium (Rocephin 1 Gram Ivpb) 1 gm in 100 mls @ 100 mls/hr IVPB DAILY [facility]; Protocol Last Admin: 07/26/18 10:06 Dose: 100 mls/hr Levothyroxine Sodium (Synthroid) 50 mcg PO ACB [facility] Last Admin: 07/26/18 10:10 Dose: 50 mcg Magnesium Hydroxide (Milk Of Magnesia) 30 ml PO DAILY PRN PRN Reason: Constipation Last Admin: 07/25/18 12:53 Dose: 30 ml Polyethylene Glycol (Miralax) 17 gm PO BID [facility] Last Admin: 07/26/18 10:07 Dose: 17 gm - Labs Labs: 07/26/18 07:00 07/26/18 07:00 PT 13.9 SECONDS (9.4-12.5) H 07/22/18 23:50 INR 1.21 07/22/18 23:50 APTT 33.8 Seconds (25.1-36.5) 07/22/18 23:50 - Constitutional Appears: Chronically Ill - Head Exam Head Exam: NORMAL INSPECTION - Respiratory Exam Respiratory Exam: Decreased Breath Sounds - Cardiovascular Exam Cardiovascular Exam: +S1, +S2 - GI/Abdominal Exam GI & Abdominal Exam: Soft. absent: Tenderness Assessment and Plan - Assessment and Plan (Free Text) Plan: Assessment probable CAP on top of acute on chronic CHF chronic CHF COPD pulmonary HTN atrial fibrillation hypothyroidism Plan continue Rocephin and Zithomax day 5 - can be switched to PO Vantin and Zithromax for another 2-3 days; cultures have been negative reviewed CT chest PCT is 0.3 but CRP is elevated discussed with Dr. Ritesh Robert
--- NOTE | 2018-07-27 14:41 | CP.PCM.DIS ---
Provider - Provider Date of Admission: 07/23/18 02:22 Attending physician: Magan Rivera MD Consults: 07/23/18 02:48 Cardiology Consult Routine Comment: a.fibb/chf/sob/pulmonary htn/pneumonia Consulting Provider: Mehrdad Banda Consulting Physician: Mehrdad Banda Reason for Consult: a.fibb/chf/sob/pulmonary htn/pneumonia 07/23/18 06:29 Consult [Physician Consult] Routine Comment: Consulting Provider: Paulino Apodaca Consulting Physician: Paulino Apodaca Reason for Consult: pneumonia 07/25/18 08:30 TCU [Evaluation for TRCU] Routine Comment: Physician Instructions: Reason For Exam: gait instability, pneumonia Time Spent in preparation of Discharge (in minutes): 45 Diagnosis - Discharge Diagnosis (1) Multifocal pneumonia Status: Acute (2) Atrial fibrillation Status: Chronic (3) COPD (chronic obstructive pulmonary disease) Status: Chronic (4) Congestive heart failure Status: Chronic (5) Pleural effusion Status: Acute (6) SOB (shortness of breath) Status: Resolved Hospital Course - Lab Results Lab Results: Micro Results 07/25/18 21:35 Urine,Clean Catch Urine Culture - Final No Growth (<1,000 CFU/ML) 07/23/18 00:20 Blood-Venous Blood Culture - Preliminary NO GROWTH AFTER 4 DAYS 07/22/18 23:50 Blood-Venous Blood Culture - Preliminary NO GROWTH AFTER 4 DAYS Most Recent Lab Values WBC 5.9 10^3/uL (4.5-11.0) 07/27/18 07:15 RBC 3.40 10^6/uL (3.5-6.1) L 07/27/18 07:15 Hgb 9.9 g/dL (14.0-18.0) L 07/27/18 07:15 Hct 30.2 % (42.0-52.0) L 07/27/18 07:15 MCV 88.8 fl (80.0-105.0) 07/27/18 07:15 MCH 29.1 pg (25.0-35.0) 07/27/18 07:15 MCHC 32.8 g/dl (31.0-37.0) 07/27/18 07:15 RDW 14.9 % (11.5-14.5) H 07/27/18 07:15 Plt Count 146 10^3/uL (120.0-450.0) 07/27/18 07:15 MPV 10.3 fl (7.0-11.0) 07/27/18 07:15 Gran % 63.3 % (50.0-68.0) 07/27/18 07:15 Lymph % (Auto) 19.2 % (22.0-35.0) L 07/27/18 07:15 [place] % (Auto) 17.3 % (1.0-6.0) H 07/27/18 07:15 Eos % (Auto) 0.2 % (1.5-5.0) L 07/27/18 07:15 Baso % (Auto) 0.0 % (0.0-3.0) 07/27/18 07:15 Gran # 3.74 (1.4-6.5) 07/27/18 07:15 Lymph # (Auto) 1.1 (1.2-3.4) L 07/27/18 07:15 [place] # (Auto) 1.0 (0.1-0.6) H 07/27/18 07:15 Eos # (Auto) 0.0 (0.0-0.7) 07/27/18 07:15 Baso # (Auto) 0.00 K/mm3 (0.0-2.0) 07/27/18 07:15 Neutrophils % (Manual) 91 % (50.0-70.0) H 07/23/18 06:00 Band Neutrophils % 3 % (0-2) H 07/23/18 06:00 Lymphocytes % (Manual) 5 % (22.0-35.0) L 07/23/18 06:00 Monocytes % (Manual) TEST NOT PERFORMED 07/23/18 06:00 Metamyelocytes % 1 % 07/23/18 06:00 Platelet Evaluation Normal (NORMAL) 07/23/18 06:00 ESR 80 mm/hr (0.00-15.0) H 07/22/18 23:50 PT 13.9 SECONDS (9.4-12.5) H 07/22/18 23:50 INR 1.21 07/22/18 23:50 APTT 33.8 Seconds (25.1-36.5) 07/22/18 23:50 D-Dimer, Quantitative 366 ng/mlDDU (0-243) H 07/22/18 23:50 pCO2 37 mm/Hg (35-45) 07/23/18 04:18 pO2 66.0 mm/Hg (80-100) L 07/23/18 04:18 HCO3 24.0 mmol/L (21-28) 07/23/18 04:18 ABG pH 7.42 (7.35-7.45) 07/23/18 04:18 ABG Total CO2 25.1 mmol.L (22-28) 07/23/18 04:18 ABG O2 Saturation 95.9 % (95-98) 07/23/18 04:18 ABG O2 Content 13.5 ML/dl (15-23) L 07/23/18 04:18 ABG Base Excess -0.3 mmol/L (-2.0-3.0) 07/23/18 04:18 ABG Hemoglobin 10.4 g/dL (11.7-17.4) L 07/23/18 04:18 ABG Carboxyhemoglobin 2.9 % (0.5-1.5) H 07/23/18 04:18 POC ABG HHb (Measured) 3.9 % (0-5) 07/23/18 04:18 ABG Methemoglobin 1.1 % (0.0-3.0) 07/23/18 04:18 ABG O2 Capacity 14.1 mL/dl (16-24) L 07/23/18 04:18 VBG pH 7.32 (7.32-7.43) 07/22/18 23:50 VBG pCO2 57.0 (40-60) 07/22/18 23:50 VBG HCO3 29.4 mmol/l (21-28) H 07/22/18 23:50 VBG Total CO2 31.1 mmol.L (22-28) H 07/22/18 23:50 VBG O2 Sat (Calc) 50.3 % (40-65) 07/22/18 23:50 VBG Base Excess 2.0 mmol/L (0.0-2.0) 07/22/18 23:50 VBG Potassium 4.3 mmol/L (3.6-5.2) 07/22/18 23:50 Hgb O2 Saturation 92.1 % (95.0-98.0) L 07/23/18 04:18 Sodium 136.0 mmol/L (132-148) 07/22/18 23:50 Chloride 99.0 mmol/L (98-107) 07/22/18 23:50 Glucose 99 mg/dl (75-110) 07/22/18 23:50 Lactate 1.3 mmol/L (0.7-2.1) 07/22/18 23:50 FiO2 28.0 % 07/23/18 04:18 Sodium 134 mmol/L (132-148) 07/27/18 07:15 Potassium 3.7 mmol/L (3.6-5.0) 07/27/18 07:15 Chloride 99 mmol/L (98-107) 07/27/18 07:15 Carbon Dioxide 29 mmol/L (21-33) 07/27/18 07:15 Anion Gap 11 (10-20) 07/27/18 07:15 BUN 17 mg/dL (7-21) 07/27/18 07:15 Creatinine 0.9 mg/dl (0.8-1.5) 07/27/18 07:15 Est GFR ( Amer) > 60 07/27/18 07:15 Est GFR (Non-Af Amer) > 60 07/27/18 07:15 Random Glucose 105 mg/dL (70-110) 07/27/18 07:15 Calcium 8.3 mg/dL (8.4-10.5) L 07/27/18 07:15 Phosphorus 4.1 mg/dL (2.5-4.5) 07/23/18 06:00 Magnesium 2.1 mg/dL (1.7-2.2) 07/24/18 07:30 Total Bilirubin 0.9 mg/dL (0.2-1.3) 07/26/18 07:00 AST 26 U/L (17-59) 07/26/18 07:00 ALT 27 U/L (7-56) 07/26/18 07:00 Alkaline Phosphatase 66 U/L (38-126) 07/26/18 07:00 Troponin I < 0.01 ng/mL 07/23/18 14:00 C-React Prot High Sens > 15.00 mg/L (1.00-3.00) H 07/22/18 23:50 NT-Pro-B Natriuret Pep 4350 pg/mL (0-450) H 07/22/18 23:50 Total Protein 7.1 g/dL (5.8-8.3) 07/26/18 07:00 Albumin 3.7 g/dL (3.0-4.8) 07/26/18 07:00 Globulin 3.3 gm/dL 07/26/18 07:00 Albumin/Globulin Ratio 1.1 (1.1-1.8) 07/26/18 07:00 Angiotensin Convert Enz 41 U/L (9-67) 07/23/18 06:00 Procalcitonin 0.30 NG/ML (0.19-0.49) 07/23/18 09:00 TSH 3rd Generation 1.48 mIU/mL (0.46-4.68) 07/23/18 06:00 Venous Blood Potassium 4.3 mmol/L (3.6-5.2) 07/22/18 23:50 Urine Color Light yellow (YELLOW) 07/23/18 12:00 Urine Appearance Clear (CLEAR) 07/23/18 12:00 Urine pH 5.5 (4.7-8.0) 07/23/18 12:00 Ur Specific [place] 1.010 (1.005-1.035) 07/23/18 12:00 Urine Protein Negative mg/dL (<30 mg/dL) 07/23/18 12:00 Urine Glucose (UA) Negative mg/dL (NEGATIVE) 07/23/18 12:00 Urine Ketones Negative mg/dL (NEGATIVE) 07/23/18 12:00 Urine Blood Small (NEGATIVE) H 07/23/18 12:00 Urine Nitrate Negative (NEGATIVE) 07/23/18 12:00 Urine Bilirubin Negative (NEGATIVE) 07/23/18 12:00 Urine Urobilinogen 0.2 E.U./dL (<1 E.U./dL) 07/23/18 12:00 Ur Leukocyte Esterase Negative Shine/uL (NEGATIVE) 07/23/18 12:00 Urine RBC 1 - 3 /hpf (0-2) 07/23/18 12:00 Urine WBC 0 - 2 /hpf (0-6) 07/23/18 12:00 Ur Epithelial Cells 0 - 2 /hpf (0-5) 07/23/18 12:00 Urine Bacteria Trace (NEG) 07/23/18 12:00 Influenza Typ A,B (EIA) Negative for flu a/b (NEGATIVE) 07/23/18 12:30 Ur L.pneumophila Ag Negative (NEGATIVE) 07/23/18 13:20 Ur Strep pneumoniae Ag Not detected (Not Detected) 07/23/18 12:00 - Hospital Course Hospital Course: HPI at time of admission: "87 year old male with PMH of CHF with preserved EF in 2013, COPD, hypothyroidism, pneumonia, pulmonary hypertension, severe tricuspid regurgitation and afib not on AC presenting to the hospital for one day history of SOB. Family who is present at bedside provide history and state patient was in his usual state of health but began to have SOB on exertion earlier in the day associated with non productive cough, sneezing, wheezing and one episode of non bloody vomiting. Family states current symptoms are similar to previous episodes of pneumonia. Family says patient is compliant with medications. Denies CP, fevers, chills, back pain, abdominal pain, urinary complaints, diarrhea, constipation, numbness, tingling, swelling, recent travel, sickness, sick contacts, trauma and lifestyle changes including diet and weight." Hospital course: Pt was admitted for management of multifocal pneumonia. Pt was placed on Zithromax and Rocephin for treatment. ID (Dr. Vidales) was consulted, who also recommended Tamiflu therapy in clinical setting of negative flu swab. Blood cultures demonstrated no growth. Cardiology (Dr. Banda) was also consulted for elevated BNP with hx chronic CHF. Troponins were neg x3. Pt was placed on Lasix therapy. Pt was also constipated during admission 2/2 not getting out of bed and deconditioning. Pt was given colace and Mag citrate with subsequent improvement. Pertinent imaging: -CTA 07/23: no evidence of acute PE, small to moderate sized R pleural effusion, cardiomegaly, moderate pulmonary vascular congestion and scattered patchy ground-glass opacities; foci of airspace consolidation at R middle and b/l lower lobes may represent PNA or aspiration versus less likely severe congestion and pulmonary edema; mildly enlarged b/l nonspecific hilar lymph nodes -Echo 07/23: biatrial enlargement, borderline concentric LVH, normal LV systolic function, septal flattening consistent w/ RV pressure overload, mild MR, mild PI , Severe TR, severe pulm HTN Pt recommended pt be evaluated for TCU. After discussion of risks and benefits of TCU management, pt and pt's family declined TCU admission, want pt to be discharged to home with home PT services. Pt was discharged to home in stable condition on 07/27/18. Instructed to follow-up with his PMD Dr. Draper within 3-5 days of hospital discharge. Was discharged on PO Vantin and Zithromax to take for the next 3 days for treatment of multifocal pneumonia. Also was given prescription of ASA daily to take outpatient. Also instructed to follow-up with Dr. Banda (Cardiology) within 1 week of hospital discharge. Discharge Exam - Head Exam Head Exam: NORMAL INSPECTION - Eye Exam Eye Exam: EOMI, Normal appearance, PERRL - ENT Exam ENT Exam: Mucous Membranes Moist - Neck Exam Neck exam: Full Rom, Normal Inspection - Respiratory Exam Respiratory Exam: Rales (Rales heard in R lower lung bases), NORMAL BREATHING PATTERN - Cardiovascular Exam Cardiovascular Exam: +S1, +S2. absent: Gallop, Rubs, Systolic Murmur - GI/Abdominal Exam GI & Abdominal Exam: Normal Bowel Sounds, Soft, Unremarkable - Extremities Exam Extremities exam: full ROM, normal capillary refill, normal inspection, pedal pulses present - Neurological Exam Neurological exam: Alert, CN II-XII Intact Additional comments: Oriented x2 - Skin Skin Exam: Dry, Intact, Normal Color, Warm Discharge Plan - Discharge Medications Prescriptions: Aspirin [Aspirin Chewable] 81 mg PO DAILY #14 chew Azithromycin [Zithromax] 250 mg PO DAILY #3 tab Cefpodoxime [Vantin] 200 mg PO BID #6 tab - Follow Up Plan Condition: GUARDED Disposition: HOME/ ROUTINE Instructions: Pneumonia in Adults, Pleural Effusion, Shortness of Breath (Dyspnea) Additional Instructions: Please follow up with your primary medical doctor, Dr. Draper, within 3-5 days after discharge. Continue home medications. You will be discharged with a prescription for the following medications: Azithromycin 250 mg oral daily for total of 3 days, Cefpodoxime 200 mg orally twice daily for total of 3 days, and Aspirin 81 mg orally once daily for total of 14 days. Please continue your Aspirin daily unless you have been told otherwise by your primary care doctor or newspaper distributor supervisor. Please follow up with newspaper distributor supervisor Dr. Banda within 5-7 days of discharge. Please get any refills needed on medications from your primary care doctor. Continue outpatient physical therapy at home. If your symptoms worsen, please go to the nearest emergency department. Referrals: Mehrdad Banda MD [Staff Provider] - Fili Draper MD [Family Provider] -
== END 2018-07-27 16:33 | disposition home health service (06) | DRG 291 ==
LOC: ED 23:34 → ERH 07-23 02:22 → 2RSO 07-23 03:38 → 5RNO 07-26 22:20
PROVIDERS: ADMIT Internal Medicine; ATTEND Internal Medicine
DX: I11.0 Hypertensive heart disease with heart failure (principal); J18.9 Pneumonia, unspecified organism; J44.0 Chronic obstructive pulmonary disease with (acute) lower respiratory infection; I50.33 Acute on chronic diastolic (congestive) heart failure; Z87.01 Personal history of pneumonia (recurrent); R09.02 Hypoxemia; R59.0 Localized enlarged lymph nodes; Z87.891 Personal history of nicotine dependence; I48.91 Unspecified atrial fibrillation; I27.20 Pulmonary hypertension, unspecified; E03.9 Hypothyroidism, unspecified; I27.29 Other secondary pulmonary hypertension; D64.9 Anemia, unspecified; H40.9 Unspecified glaucoma; H91.90 Unspecified hearing loss, unspecified ear; I08.1 Rheumatic disorders of both mitral and tricuspid valves; I27.81 Cor pulmonale (chronic); I48.2 Chronic atrial fibrillation; K59.00 Constipation, unspecified; K80.20 Calculus of gallbladder without cholecystitis without obstruction; N40.0 Benign prostatic hyperplasia without lower urinary tract symptoms; Z79.01 Long term (current) use of anticoagulants; Z79.82 Long term (current) use of aspirin